=== PATIENT | female | born 1965 | race Caucasian/White ===

== ENCOUNTER 2018-08-04 14:15 | Emergency (ER) | payer MEDICARE ==
[~2018-08-04] VITALS: Ht 170.2 cm; Wt 98.4 kg
--- OUTSIDE RECORDS SUMMARY | 2018-08-04 14:19 | XMS REPORT | Continuity of Care Document ---
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 Role Phone [employer] Unavailable Unavailable Problems Problem Status Onset Date Classification Date Reported Comments Source FOLLOW ON WOUND Active 02/18/2014 [facility] RENAL POST LABS Active 10/07/2013 [facility] FOLLOW UP Active 07/23/2013 [facility] POST CLINIC Active 07/03/2013 [facility] A,B, C, D Active 01/19/2012 [facility] ABC, D, MYCO Active 09/26/2011 [facility] ABCD, Active 12/08/2010 [facility] Bowel obstruction Resolved 11/20/2009 Problem 03/22/2014 [facility] Lethargic Resolved 11/20/2009 Problem 03/22/2014 [facility] Sinus bradycardia Resolved 11/20/2009 Problem 03/22/2014 [facility] LAREGE ABDOMINAL WOUND Active 02/06/1999 [facility] Pain Active Problem 05/02/2013 [facility] Wound care assessment Active Problem 03/22/2014 [facility] Bowel obstruction Resolved Problem 06/21/2012 [facility] Lethargic Resolved Problem 06/21/2012 [facility] Pain Active Problem 06/21/2012 [facility] Sinus bradycardia Resolved Problem 06/21/2012 [facility] Wound care assessment Active Problem 06/21/2012 [facility] Diabetes mellitus type 2 Resolved Problem 03/22/2014 [facility] Pain(Stable) Active Problem 03/22/2014 [facility] Polycystic kidney disease Resolved Problem 03/22/2014 [facility] MRSA1 Active Problem 03/22/2014 1Problem added by Discern Expert. [facility] KIDNEY TRANSPLANT STATUS Active [facility] Medications Medication Details Route Status Patient Instructions Ordering Provider Order Date Source Hydralazine Hydrochloride 25 MG Oral Tablet 25 mg=1 tab, PO, BID, # 360 tab, 0 Refill(s) Active 06/24/2013 [facility] Sulfamethoxazole 400 MG / Trimethoprim 80 MG Oral Tablet [Bactrim] 1 tab, PO, Q-M-[id number], 0 Refill(s) Inactive 06/24/2013 [facility] Gemfibrozil 600 MG Oral Tablet [Lopid] 600 mg=1 tab, PO, BID, # 180 tab, 0 Refill(s) Active 06/24/2013 [facility] Mycophenolic Acid 360 MG Enteric Coated Tablet [Myfortic] 720 mg=2 tab, PO, BID, # 120 tab, 0 Refill(s) Active 06/24/2013 [facility] cyclosporine, modified 100 MG Oral Capsule [Neoral] 100 mg=1 cap, PO, BID, # 60 cap, 0 Refill(s) Active 06/24/2013 [facility] losartan 25 mg oral tablet 25 mg=1 tab, PO, Daily, # 90 tab, 0 Refill(s) Active 06/24/2013 [facility] insulin detemir 100 UNT/ML Injectable Solution [Levemir] See Special Instructions, SUB-Q, BID, Inject 35 units at 9am and inject 25 units at 9pm, vial, 0 Refill(s)Special Instructions: Inject 35 units at 9am and inject 25 units at 9pm Active 06/24/2013 [facility] simvastatin 40 mg oral tablet 40 mg=1 tab, PO, Bedtime, # 90 tab, 0 Refill(s) Active 06/24/2013 [facility] Fluoxetine 40 MG Oral Capsule [Prozac] 40 mg=1 cap, PO, Daily, # 90 cap, 0 Refill(s) Active 06/24/2013 [facility] Glipizide 10 MG Oral Tablet 10 mg=1 tab, PO, BID, # 30 tab, 0 Refill(s) Active 06/24/2013 [facility] Frederick-3 Acid Ethyl Esters (LONGTERM) 1000 MG Oral Capsule [Lovaza] 2,000 mg=2 cap, PO, BID, # 120 cap, 0 Refill(s) Active 06/24/2013 [facility] Allergies, Adverse Reactions, Alerts No Known Medication Allergies Immunizations No Data Provided for This Section Results Order Name Results Value Reference Range Date Interpretation Comments Source Microbiology Culture: Urine 05/21/2012 [facility] CHEMISTRY Immune Cell Func 269.8 05/21/2012 NA <sup>4</sup>Result Comment: Reference Range
< [id number] Low immune cell response
226-524 Moderate immune cell response
> zs=043 High immune cell response

Test Performed at:
[facility]
[id number] [facility]
[place] [address] JOI NARAYAN M.D. [facility] CHEMISTRY Cyclosp Tr 102.0 50.0 - 350.0 05/21/2012 Normal [facility] CHEMISTRY A/G Ratio 1.1 0.7 - 1.6 05/21/2012 Normal [facility] CHEMISTRY Globulin 3.6 2.0 - 4.0 05/21/2012 Normal [facility] CHEMISTRY B/C Ratio 24 6 - 25 05/21/2012 Normal [facility] CHEMISTRY AGAP 16.8 10.0 - 20.0 05/21/2012 Normal [facility] CHEMISTRY eGFR 76 05/21/2012 NA <sup>2</sup>Result Comment: The eGFR is calculated using the CKD-EPI formula. In most young, healthy individuals the eGFR will be >90 mL/min/1.73m2. The eGFR declines with age. An eGFR of 60-89 may be normal in some populations, particularly the elderly, for whom the CKD-EPI formula has not been extensively validated. Use of the eGFR is not recommended in the following populations:& lt;br/>
Individuals with unstable creatinine concentrations, including patients and those with serious co-morbid conditions.

Patients with extremes in muscle mass or diet.

The data above are obtained from the National Kidney Disease Education Program (NKDEP) which additionally recommends that when the eGFR is used in patients with extremes of body mass index for purposes of drug dosing, the eGFR should be multiplied by the estimated BMI. [facility] CHEMISTRY Alk Phos 73 39 - 136 05/21/2012 Normal [facility] CHEMISTRY Total Protein 7.6 6.4 - 8.4 05/21/2012 Normal [facility] CHEMISTRY Bili Total 0.5 0.2 - 1.3 05/21/2012 Normal [facility] CHEMISTRY Calcium Lvl 9.9 8.5 - 10.5 05/21/2012 Normal [facility] CHEMISTRY CO2 25 24 - 32 05/21/2012 Normal [facility] CHEMISTRY Chloride Lvl 98 95 - 109 05/21/2012 Normal [facility] CHEMISTRY Sodium Lvl 135 135 - 145 05/21/2012 Normal [facility] CHEMISTRY Potassium Lvl 4.8 3.5 - 5.1 05/21/2012 Normal <sup>1</sup>Result Comment: Specimen Slightly Hemolyzed. [facility] CHEMISTRY Creatinine Lvl 0.9 0.5 - 1.4 05/21/2012 Normal [facility] CHEMISTRY BUN 22 7 - 22 05/21/2012 Normal [facility] CHEMISTRY Glucose Lvl 237 70 - 99 05/21/2012 HI <sup>3</sup>Interpretive Data: Adult reference range values reflect the clinical guidelines
of the [place] [employer]. [facility] CHEMISTRY AST 21 0 - 37 05/21/2012 Normal [facility] CHEMISTRY Albumin Lvl 4.0 3.5 - 5.0 05/21/2012 Normal [facility] CHEMISTRY ALT 36 0 - 65 05/21/2012 Normal [facility] CHEMISTRY Chol 125 120 - 200 05/21/2012 Normal [facility] CHEMISTRY Uric Acid 3.1 2.5 - 7.0 05/21/2012 Normal [facility] CHEMISTRY Trig 428 0 - 200 05/21/2012 HI [facility] CHEMISTRY Phosphorus 3.1 2.5 - 4.5 05/21/2012 Normal [facility] CHEMISTRY LDH 175 98 - 192 05/21/2012 Normal [facility] CHEMISTRY U Prot/Creat 0.3 05/21/2012 NA [facility] CHEMISTRY U Creatinine 114.5 05/21/2012 NA <sup>5</sup>Interpretive Data: No established reference ranges. [facility] CHEMISTRY U Protein 38.8 05/21/2012 NA <sup>6</sup>Interpretive Data: No established reference ranges. [facility] HEMATOLOGY Hgb 12.1 12.0 - 16.0 05/21/2012 Normal [facility] HEMATOLOGY Hct 35.2 36.0 - 48.0 05/21/2012 LOW [facility] HEMATOLOGY WBC 8.6 3.7 - 10.4 05/21/2012 Normal [facility] HEMATOLOGY RBC 3.80 4.20 - 5.40 05/21/2012 LOW [facility] HEMATOLOGY RDW 14.1 11.5 - 14.5 05/21/2012 Normal [facility] HEMATOLOGY MCV 92.6 81.0 - 99.0 05/21/2012 Normal [facility] HEMATOLOGY MCH 31.7 27.0 - 31.0 05/21/2012 HI [facility] HEMATOLOGY Platelet 284 133 - 450 05/21/2012 Normal [facility] HEMATOLOGY MPV 9.0 7.4 - 10.4 05/21/2012 Normal [facility] HEMATOLOGY MCHC 34.2 32.0 - 36.0 05/21/2012 Normal [facility] HEMATOLOGY Basophils # 0.1 0.0 - 0.2 05/21/2012 Normal [facility] HEMATOLOGY Lymphocytes # 2.7 1.0 - 5.5 05/21/2012 Normal [facility] HEMATOLOGY Monocytes # 0.7 0.0 - 0.8 05/21/2012 Normal [facility] HEMATOLOGY Eosinophils 2.6 0.0 - 4.0 05/21/2012 Normal [facility] HEMATOLOGY Basophils 0.6 0.0 - 1.0 05/21/2012 Normal [facility] HEMATOLOGY Segs-Bands # 4.9 1.5 - 8.1 05/21/2012 Normal [facility] HEMATOLOGY Segs 57.3 45.0 - 75.0 05/21/2012 Normal [facility] HEMATOLOGY Lymphocytes 31.5 20.0 - 40.0 05/21/2012 Normal [facility] HEMATOLOGY Monocytes 8.0 2.0 - 12.0 05/21/2012 Normal [facility] HEMATOLOGY Eosinophils # 0.2 0.0 - 0.5 05/21/2012 Normal [facility] URINALYSIS UA Glucose >=1000mg/dL 05/21/2012 NA [facility] URINALYSIS UA Urobilinogen 0.1 - 1.0 05/21/2012 NA [facility] URINALYSIS UA Spec Grav 1.016 <=1.030 05/21/2012 Normal [facility] URINALYSIS UA pH 5.5 5.0 - 8.0 05/21/2012 Normal [facility] URINALYSIS UA Bili Negative *NA* (05/21/2012 10:30:00) Negative 05/21/2012 NA [facility] URINALYSIS UA Blood Moderate *ABN* (05/21/2012 10:30:00) Negative 05/21/2012 ABN [facility] URINALYSIS UA Ketones Negative mg/dL *NA* (05/21/2012 10:30:00) Negative 05/21/2012 NA [facility] URINALYSIS UA Protein 30 mg/dL *ABN* (05/21/2012 10:30:00) Negative 05/21/2012 ABN [facility] URINALYSIS UA RBC 71 0 - 2 05/21/2012 HI [facility] URINALYSIS UA Sq Epi Few /LPF *NA* (05/21/2012 10:30:00) Few 05/21/2012 NA [facility] URINALYSIS UA Leuk Est Negative (05/21/2012 10:30:00) Negative 05/21/2012 Normal [facility] URINALYSIS UA Nitrite Negative (05/21/2012 10:30:00) Negative 05/21/2012 Normal [facility] URINALYSIS UA Color Yellow *NA* (05/21/2012 10:30:00) Yellow 05/21/2012 NA [facility] URINALYSIS UA Turbidity Clear (05/21/2012 10:30:00) Clear 05/21/2012 Normal [facility] Microbiology Culture: Urine 01/20/2012 [facility] CHEMISTRY B/C Ratio 18 6 - 25 01/19/2012 Normal [facility] CHEMISTRY Globulin 3.5 2.0 - 4.0 01/19/2012 Normal [facility] CHEMISTRY A/G Ratio 1.4 0.7 - 1.6 01/19/2012 Normal [facility] CHEMISTRY AGAP 18.5 10.0 - 20.0 01/19/2012 Normal [facility] CHEMISTRY eGFR 67 01/19/2012 NA <sup>3</sup>Result Comment: The eGFR is calculated using the CKD-EPI formula. In most young, healthy individuals the eGFR will be >90 mL/min/1.73m2. The eGFR declines with age. An eGFR of 60-89 may be normal in some populations, particularly the elderly, for whom the CKD-EPI formula has not been extensively validated. Use of the eGFR is not recommended in the following populations:& lt;br/>
Individuals with unstable creatinine concentrations, including patients and those with serious co-morbid conditions.

Patients with extremes in muscle mass or diet.

The data above are obtained from the National Kidney Disease Education Program (NKDEP) which additionally recommends that when the eGFR is used in patients with extremes of body mass index for purposes of drug dosing, the eGFR should be multiplied by the estimated BMI. [facility] CHEMISTRY BUN 18 7 - 22 01/19/2012 Normal [facility] CHEMISTRY Alk Phos 58 39 - 136 01/19/2012 Normal [facility] CHEMISTRY Glucose Lvl 162 70 - 99 01/19/2012 HI <sup>5</sup>Interpretive Data: Adult reference range values reflect the clinical guidelines
of the [place] [employer]. [facility] CHEMISTRY ALT 47 0 - 65 01/19/2012 Normal [facility] CHEMISTRY Albumin Lvl 4.8 3.5 - 5.0 01/19/2012 Normal [facility] CHEMISTRY Bili Total 0.6 0.2 - 1.3 01/19/2012 Normal [facility] CHEMISTRY Total Protein 8.3 6.4 - 8.4 01/19/2012 Normal [facility] CHEMISTRY Calcium Lvl 10.0 8.5 - 10.5 01/19/2012 Normal [facility] CHEMISTRY Creatinine Lvl 1.0 0.5 - 1.4 01/19/2012 Normal [facility] CHEMISTRY Sodium Lvl 138 135 - 145 01/19/2012 Normal [facility] CHEMISTRY AST 25 0 - 37 01/19/2012 Normal [facility] CHEMISTRY CO2 20 24 - 32 01/19/2012 LOW [facility] CHEMISTRY Potassium Lvl 4.5 3.5 - 5.1 01/19/2012 Normal [facility] CHEMISTRY Chloride Lvl 104 95 - 109 01/19/2012 Normal [facility] CHEMISTRY eGFR 67 01/19/2012 NA <sup>4</sup>Result Comment: The eGFR is calculated using the CKD-EPI formula. In most young, healthy individuals the eGFR will be >90 mL/min/1.73m2. The eGFR declines with age. An eGFR of 60-89 may be normal in some populations, particularly the elderly, for whom the CKD-EPI formula has not been extensively validated. Use of the eGFR is not recommended in the following populations:& lt;br/>
Individuals with unstable creatinine concentrations, including patients and those with serious co-morbid conditions.

Patients with extremes in muscle mass or diet.

The data above are obtained from the National Kidney Disease Education Program (NKDEP) which additionally recommends that when the eGFR is used in patients with extremes of body mass index for purposes of drug dosing, the eGFR should be multiplied by the estimated BMI. [facility] CHEMISTRY AST 25 0 - 37 01/19/2012 Normal [facility] CHEMISTRY Total Protein 8.3 6.4 - 8.4 01/19/2012 Normal [facility] CHEMISTRY Calcium Lvl 10.0 8.5 - 10.5 01/19/2012 Normal [facility] CHEMISTRY Bili Total 0.6 0.2 - 1.3 01/19/2012 Normal [facility] CHEMISTRY CO2 20 24 - 32 01/19/2012 LOW [facility] CHEMISTRY Chloride Lvl 104 95 - 109 01/19/2012 Normal [facility] CHEMISTRY Alk Phos 58 39 - 136 01/19/2012 Normal [facility] CHEMISTRY Albumin Lvl 4.8 3.5 - 5.0 01/19/2012 Normal [facility] CHEMISTRY ALT 47 0 - 65 01/19/2012 Normal [facility] CHEMISTRY Potassium Lvl 4.5 3.5 - 5.1 01/19/2012 Normal [facility] CHEMISTRY Creatinine Lvl 1.0 0.5 - 1.4 01/19/2012 Normal [facility] CHEMISTRY Sodium Lvl 138 135 - 145 01/19/2012 Normal [facility] CHEMISTRY Glucose Lvl 162 70 - 99 01/19/2012 HI <sup>6</sup>Interpretive Data: Adult reference range values reflect the clinical guidelines
of the [place] [employer]. [facility] CHEMISTRY BUN 18 7 - 22 01/19/2012 Normal [facility] CHEMISTRY B/C Ratio 18 6 - 25 01/19/2012 Normal [facility] CHEMISTRY Globulin 3.5 2.0 - 4.0 01/19/2012 Normal [facility] CHEMISTRY A/G Ratio 1.4 0.7 - 1.6 01/19/2012 Normal [facility] CHEMISTRY AGAP 18.5 10.0 - 20.0 01/19/2012 Normal [facility] CHEMISTRY U Prot/Creat 0.2 01/19/2012 NA [facility] CHEMISTRY U Protein 28.7 01/19/2012 NA <sup>10</sup>Interpretive Data: No established reference ranges. [facility] CHEMISTRY U Creatinine 142.1 01/19/2012 NA <sup>9</sup>Interpretive Data: No established reference ranges. [facility] CHEMISTRY Uric Acid 3.9 2.5 - 7.0 01/19/2012 Normal [facility] CHEMISTRY Trig 305 0 - 200 01/19/2012 HI [facility] CHEMISTRY Phosphorus 2.7 2.5 - 4.5 01/19/2012 Normal [facility] CHEMISTRY Cyclosp Tr 85.6 50.0 - 350.0 01/19/2012 Normal [facility] CHEMISTRY Hgb A1C 6.7 01/19/2012 NA <sup>7</sup>Interpretive Data: HbA1C% eAG(mg/dL) Interpretation
6.0 126 Very good control
6.5 140 Very good control
7.0 154 Good Control
7.5 169 Good Control
8.0 183 Marginal Control, take action to lower
8.5 197 Marginal Control, take action to lower
9.0 212 Poor Control, take action to lower
9.5 226 Poor Control, take action to lower
10.0 240 Poor Control, take action to lower [facility] CHEMISTRY Immune Cell Func 188 01/19/2012 LOW <sup>8</sup>Result Comment: Reference Range
< eq=[id number] Low immune cell response
[phone] Moderate immune cell response
> nn=414 High immune cell response

Test Performed at:
[facility]
[id number] [facility]
[place] [address] JOI NARAYAN M.D. [facility] CHEMISTRY Chol 131 120 - 200 01/19/2012 Normal [facility] CHEMISTRY LDL 41 0 - 129 01/19/2012 Normal [facility] CHEMISTRY HDL 29 >=35 01/19/2012 LOW [facility] CHEMISTRY Chol 131 120 - 200 01/19/2012 Normal [facility] CHEMISTRY Trig 305 0 - 200 01/19/2012 [facility] CHEMISTRY CHD Risk 4.52 3.90 - 5.80 01/19/2012 Normal [facility] CHEMISTRY LDL Direct 67 0 - 129 01/19/2012 Normal [facility] CHEMISTRY Magnesium Lvl 1.8 1.8 - 2.4 01/19/2012 Normal [facility] CHEMISTRY LDH 173 98 - 192 01/19/2012 Normal [facility] HEMATOLOGY Monocytes 7.9 2.0 - 12.0 01/19/2012 [facility] HEMATOLOGY Lymphocytes 36.3 20.0 - 40.0 01/19/2012 [facility] HEMATOLOGY Segs 52.2 45.0 - 75.0 01/19/2012 [facility] HEMATOLOGY Eosinophils 2.9 0.0 - 4.0 01/19/2012 [facility] HEMATOLOGY Segs-Bands # 4.1 1.5 - 8.1 01/19/2012 Normal [facility] HEMATOLOGY Basophils 0.7 0.0 - 1.0 01/19/2012 Normal [facility] HEMATOLOGY Eosinophils # 0.2 0.0 - 0.5 01/19/2012 [facility] HEMATOLOGY Monocytes # 0.6 0.0 - 0.8 01/19/2012 [facility] HEMATOLOGY Lymphocytes # 2.9 1.0 - 5.5 01/19/2012 [facility] HEMATOLOGY Basophils # 0.1 0.0 - 0.2 01/19/2012 Normal [facility] HEMATOLOGY WBC 7.9 3.7 - 10.4 01/19/2012 Normal [facility] HEMATOLOGY RBC 3.87 4.20 - 5.40 01/19/2012 LOW [facility] HEMATOLOGY Hgb 12.7 12.0 - 16.0 01/19/2012 Normal [facility] HEMATOLOGY Hct 37.3 36.0 - 48.0 01/19/2012 Normal [facility] HEMATOLOGY RDW 14.7 11.5 - 14.5 01/19/2012 [facility] HEMATOLOGY MCH 32.8 27.0 - 31.0 01/19/2012 [facility] HEMATOLOGY MCHC 34.2 32.0 - 36.0 01/19/2012 [facility] HEMATOLOGY MCV 96.2 81.0 - 99.0 01/19/2012 Normal [facility] HEMATOLOGY Platelet 293 133 - 450 01/19/2012 Normal [facility] HEMATOLOGY MPV 9.3 7.4 - 10.4 01/19/2012 Normal [facility] IMMUNOLOGY EBV PCR Ql NOT DETECTED 01/19/2012 NA <sup>11</sup>Result Comment: REFERENCE RANGE: NOT DETECTED

This test was developed and its performance
characteristics have been determined by [facility]. It has not been cleared or approved
by the U.S. Food and Drug Administration. The FDA
has determined that such clearance or approval is
not necessary. Performance characteristics refer
to the analytical performance of the test.
Test Performed at:
[facility]
[address]
[place] [address] Tricia Lynn MD [facility] IMMUNOLOGY Source WHOLE BLOOD 01/19/2012 NA [facility] INFECTIOUS DISEASES Source BK Virus PCR Qnt Plasma 01/19/2012 NA [facility] INFECTIOUS DISEASES BK Virus PCR Qnt (log) <2.0 01/19/2012 NA <sup>2</sup>Interpretive Data: Analytic Quantification Range: 100-400,000,000 copies/mL (2.0-8.6 log)

BK DNA detected below 100 copies/mL will be resulted as "BK DNA
detected, less than 100 copies/mL."

No target BK DNA detected will be reported as "BK DNA not detected."
A negative result does not rule out the possibility of the presence
of the BK virus. The specimen may contain BK below the detectable
limits of the assay.

The BK Virus is a DNA virus belonging to the polyomaviruses. The BK Virus assay targets a 274 base pair region of the BK virus genome.

This assay utilizes analyte specific (ASR) reagents for Real-Time nucleic acid amplification (PCR). Results should not be used as the sole basis for clinical diagnosis, treatment or patient management. Performance characteristics have been verified by the [facility] within [facility]. The [facility] is authorized under the Clinical Laboratory Improvement Amendments of 1988 (CLIA-88) to perform high complexity testing. [facility] INFECTIOUS DISEASES BK Virus PCR Qnt Negative (01/19/2012 09:30:00) Negative 01/19/2012 Normal [facility] INFECTIOUS DISEASES CMV PCR Qnt Negative (01/19/2012 09:30:00) Negative 01/19/2012 Normal [facility] INFECTIOUS DISEASES Source CMV PCR Qnt Blood *NA* (01/19/2012 09:30:00) 01/19/2012 NA [facility] INFECTIOUS DISEASES CMV PCR Qnt (log) <2.4 01/19/2012 NA <sup>1</sup>Interpretive Data: Analytic Quantification Range: 250-2,500,000 copies/mL (2.4-6.4 log)

CMV DNA detected below 250 copies/mL will be resulted as "CMV DNA
detected, less than 250 copies/mL."

No target CMV DNA detected will be reported as "CMV DNA not
detected." A negative result does not rule out the possibility
of the presence of Cytomegalovirus. The specimen may contain CMV
below the detectable limits of the assay.

The human Cytomegalovirus (CMV) is a DN A virus belonging to the herpes virus family. The CMV Virus assay targets a 105 base pair region of the CMV virus genome.

This assay utilizes analyte specific (ASR) reagents for Real-Time nucleic acid amplification (PCR). Results should not be used as the sole basis for clinical diagnosis, treatment or patient management. Performance characteristics have been verified by the [facility] ular Diagnostic Laboratory within [facility]. The Molecular Diagnostic Laboratory is authorized under the Clinical Laboratory Improvement Amendments of 1988 (CLIA-88) to perform high complexity testing. [facility] URINALYSIS UA Urobilinogen 0.1 - 1.0 01/19/2012 NA [facility] URINALYSIS UA Mucus Few /LPF *NA* (01/19/2012 09:30:00) None Seen 01/19/2012 NA [facility] URINALYSIS UA Turbidity Slight *ABN* (01/19/2012 09:30:00) Clear 01/19/2012 ABN [facility] URINALYSIS UA Color Yellow *NA* (01/19/2012 09:30:00) Yellow 01/19/2012 NA [facility] URINALYSIS UA pH 5.5 5.0 - 8.0 01/19/2012 Normal [facility] URINALYSIS UA Spec Grav 1.021 <=1.030 01/19/2012 Normal [facility] URINALYSIS UA Protein 20 mg/dL *ABN* (01/19/2012 09:30:00) Negative 01/19/2012 ABN [facility] URINALYSIS UA Bacteria Moderate /HPF *ABN* (01/19/2012 09:30:00) None Seen 01/19/2012 ABN [facility] URINALYSIS UA WBC 3 0 - 5 01/19/2012 Normal [facility] URINALYSIS UA RBC 2 0 - 2 01/19/2012 Normal [facility] URINALYSIS UA Blood Negative (01/19/2012 09:30:00) Negative 01/19/2012 Normal [facility] URINALYSIS UA Glucose Negative mg/dL *NA* (01/19/2012 09:30:00) Negative 01/19/2012 NA [facility] URINALYSIS UA Ketones Negative mg/dL *NA* (01/19/2012 09:30:00) Negative 01/19/2012 NA [facility] URINALYSIS UA Bili Negative *NA* (01/19/2012 09:30:00) Negative 01/19/2012 NA [facility] URINALYSIS UA Nitrite Negative (01/19/2012 09:30:00) Negative 01/19/2012 Normal [facility] URINALYSIS UA Leuk Est Negative (01/19/2012 09:30:00) Negative 01/19/2012 Normal [facility] URINALYSIS UA Sq Epi Many /LPF *ABN* (01/19/2012 09:30:00) Few 01/19/2012 ABN [facility] CHEMISTRY U Prot/Creat 0.4 09/27/2011 NA [facility] CHEMISTRY U Protein 34.8 09/27/2011 NA <sup>7</sup>Interpretive Data: No established reference ranges. [facility] CHEMISTRY U Creatinine 93.6 09/27/2011 NA <sup>6</sup>Interpretive Data: No established reference ranges. [facility] CHEMISTRY Chol 195 120 - 200 09/27/2011 Normal [facility] CHEMISTRY Trig 972 0 - 200 09/27/2011 [facility] CHEMISTRY Phosphorus 3.4 2.5 - 4.5 09/27/2011 Normal [facility] CHEMISTRY Uric Acid 4.2 2.5 - 7.0 09/27/2011 Normal [facility] CHEMISTRY eGFR 51 09/27/2011 NA <sup>2</sup>Result Comment: Expected eGFR for >20 yr. age group: >=60 ml/min/1.73 sq m

The eGFR calculation is not valid in or for

persons < 18 years of age.

From National Kidney Disease Education Program (NKDEP) [facility] CHEMISTRY B/C Ratio 19 6 - 25 09/27/2011 Normal [facility] CHEMISTRY Globulin 4.1 2.0 - 4.0 09/27/2011 [facility] CHEMISTRY A/G Ratio 1.0 0.7 - 1.6 09/27/2011 Normal [facility] CHEMISTRY AST 25 0 - 37 09/27/2011 Normal [facility] CHEMISTRY Bili Total 0.6 0.2 - 1.3 09/27/2011 Normal [facility] CHEMISTRY Sodium Lvl 132 135 - 145 09/27/2011 LOW [facility] CHEMISTRY Potassium Lvl 4.5 3.5 - 5.1 09/27/2011 Normal [facility] CHEMISTRY Total Protein 8.4 6.4 - 8.4 09/27/2011 Normal [facility] CHEMISTRY AGAP 20.5 10.0 - 20.0 09/27/2011 [facility] CHEMISTRY Calcium Lvl 10.6 8.5 - 10.5 09/27/2011 [facility] CHEMISTRY BUN 23 7 - 22 09/27/2011 [facility] CHEMISTRY Chloride Lvl 95 95 - 109 09/27/2011 Normal [facility] CHEMISTRY CO2 21 24 - 32 09/27/2011 LOW [facility] CHEMISTRY ALT 52 0 - 65 09/27/2011 Normal [facility] CHEMISTRY Creatinine Lvl 1.2 0.5 - 1.4 09/27/2011 Normal [facility] CHEMISTRY Albumin Lvl 4.3 3.5 - 5.0 09/27/2011 Normal [facility] CHEMISTRY Alk Phos 86 39 - 136 09/27/2011 Normal [facility] CHEMISTRY Glucose Lvl 409 70 - 99 09/27/2011 CRIT <sup>3</sup>Result Comment: Called to Diya Rodriguez at 09/27/2011 12:42:53 CDT called by dbf read back ok
<sup>4</sup>Interpretive Data: Adult reference range values reflect the clinical guidelines
of the [place] [employer]. [facility] CHEMISTRY Cyclosp Tr 128.4 50.0 - 350.0 09/27/2011 Normal [facility] CHEMISTRY Immune Cell Func 356 09/27/2011 NA <sup>5</sup>Result Comment: Reference Range
< my=493 Low immune cell response
226-524 Moderate immune cell response
> od=655 High immune cell response

Test Performed at:
[facility]
[address] [place] [address]
[place] [address] JOI NARAYAN M.D. [facility] CHEMISTRY LDH 170 98 - 192 09/27/2011 Normal [facility] HEMATOLOGY Lymphocytes 25.2 20.0 - 40.0 09/27/2011 Normal [facility] HEMATOLOGY Monocytes 6.2 2.0 - 12.0 09/27/2011 Normal [facility] HEMATOLOGY Eosinophils 1.8 0.0 - 4.0 09/27/2011 Normal [facility] HEMATOLOGY Basophils 0.4 0.0 - 1.0 09/27/2011 Normal [facility] HEMATOLOGY Monocytes # 0.5 0.0 - 0.8 09/27/2011 Normal [facility] HEMATOLOGY Segs-Bands # 5.6 1.5 - 8.1 09/27/2011 Normal [facility] HEMATOLOGY Eosinophils # 0.2 0.0 - 0.5 09/27/2011 Normal [facility] HEMATOLOGY Lymphocytes # 2.1 1.0 - 5.5 09/27/2011 Normal [facility] HEMATOLOGY Basophils # 0.0 0.0 - 0.2 09/27/2011 Normal [facility] HEMATOLOGY Segs 66.4 45.0 - 75.0 09/27/2011 Normal [facility] HEMATOLOGY Platelet 284 133 - 450 09/27/2011 Normal [facility] HEMATOLOGY MCHC 34.0 32.0 - 36.0 09/27/2011 Normal [facility] HEMATOLOGY RDW 13.3 11.5 - 14.5 09/27/2011 Normal [facility] HEMATOLOGY MPV 9.6 7.4 - 10.4 09/27/2011 Normal [facility] HEMATOLOGY Hct 38.8 36.0 - 48.0 09/27/2011 Normal [facility] HEMATOLOGY MCV 95.8 81.0 - 99.0 09/27/2011 Normal [facility] HEMATOLOGY Hgb 13.2 12.0 - 16.0 09/27/2011 Normal [facility] HEMATOLOGY MCH 32.6 27.0 - 31.0 09/27/2011 HI [facility] HEMATOLOGY WBC 8.5 3.7 - 10.4 09/27/2011 Normal [facility] HEMATOLOGY RBC 4.05 4.20 - 5.40 09/27/2011 LOW [facility] IMMUNOLOGY EBV PCR Qnt <200 09/27/2011 NA <sup>8</sup>Result Comment: REFERENCE RANGE: <200 copies/mL

This test was developed and its performance
characteristics have been determined by [facility]. It has not been cleared or approved
by the U.S. Food and Drug Administration. The FDA
has determined that such clearance or approval is
not necessary. Performance characteristics refer
to the analytical performance of the test.
Test Performed at:
[facility]
[address]
[place] [phone] Tricia Lynn MD [facility] IMMUNOLOGY Source BLOOD 09/27/2011 NA [facility] REFERENCE LAB RESULTS Test Name MYCOPHENOLIC ACID 09/27/2011 Unknown [facility] REFERENCE LAB RESULTS Misc [facility] See Report 1 (09/27/2011 10:55:00) 09/27/2011 Normal <sup>1</sup>Result Comment: Mycophenolic Acid: 4.7 H mcg/mL
Reference Range (TROUGH): 1.0-3.5 mcg/mL

MPA Glucuronide 121.7 H mcg/mL
Reference Range (TROUGH): 35.0-100.0 [facility] URINALYSIS UA Urobilinogen 0.1 - 1.0 09/27/2011 NA [facility] URINALYSIS Micro? Performed *NA* (09/27/2011 10:55:00) 09/27/2011 NA [facility] URINALYSIS UA Turbidity Clear (09/27/2011 10:55:00) Clear 09/27/2011 Normal [facility] URINALYSIS UA Color Yellow *NA* (09/27/2011 10:55:00) Yellow 09/27/2011 NA [facility] URINALYSIS UA Bacteria Occasional /HPF *NA* (09/27/2011 10:55:00) None Seen 09/27/2011 NA [facility] URINALYSIS UA RBC 1 0 - 2 09/27/2011 Normal [facility] URINALYSIS UA WBC <1 0 - 5 09/27/2011 Normal [facility] URINALYSIS UA Sq Epi Moderate /LPF *ABN* (09/27/2011 10:55:00) Few 09/27/2011 ABN [facility] URINALYSIS UA Leuk Est Negative (09/27/2011 10:55:00) Negative 09/27/2011 Normal [facility] URINALYSIS UA Nitrite Negative (09/27/2011 10:55:00) Negative 09/27/2011 Normal [facility] URINALYSIS UA Blood Negative (09/27/2011 10:55:00) Negative 09/27/2011 Normal [facility] URINALYSIS UA Bili Negative *NA* (09/27/2011 10:55:00) Negative 09/27/2011 [facility] URINALYSIS UA Ketones Negative mg/dL *NA* (09/27/2011 10:55:00) Negative 09/27/2011 [facility] URINALYSIS UA Glucose >=1000 mg/dL *ABN* (09/27/2011 10:55:00) Negative 09/27/2011 ABN [facility] URINALYSIS UA Protein 20 mg/dL *ABN* (09/27/2011 10:55:00) Negative 09/27/2011 ABN [facility] URINALYSIS UA Spec Grav 1.022 <=1.030 09/27/2011 Normal [facility] URINALYSIS UA pH 6.0 5.0 - 8.0 09/27/2011 Normal [facility] Microbiology Culture: Urine 09/27/2011 [facility] CHEMISTRY U Prot/Creat 0.6 03/29/2011 NA [facility] CHEMISTRY LDH 213 98 - 192 03/29/2011 HI [facility] CHEMISTRY U Protein 94.5 03/29/2011 NA <sup>12</sup>Interpretive Data: No established reference ranges. [facility] CHEMISTRY Cyclosp Tr UT 104.0 03/29/2011 NA <sup>8</sup>Interpretive Data: Kidney Transplantation: Therapeutic ranges for Cyclosporine trough alone: 100-240 (0-12 mos) 35-170 (>=12 mos) Therapeutic ranges for Cyclosporine trough + Sirolimus: 30-130 (0-12 mos) 20-90 (>=12 mos) Cyclosporine (Neoral) at 2nd Hr after dosing (C2): 460-1200 (&am p;lt;=1 month) 340-710 (1-6 mos) 170-600 (>=12 mos) Kidney-Pancreas and Pancreas Transplantation: Therapeutic ranges for Cyclosporine trough alone: 200-240 (1-3 mos) 70-200 (>3 mos) Sub-therapeutic range for Cyclosporine trough alone: <70 Toxic level for Cyclosporine trough alone: >240 Therapeutic ranges for Cyclosporine trough + Sirolimus: 60-90 (1-3 mos) 15- 60 (>3 mos) Liver Transplantation: Sub-therapeutic range for Cyclosporine (Neoral) trough: <60 Toxic range for Cyclosporine (Neoral) trough: >250 *Troughs are defined by concentration values prior to dosing. *Methodology and Reference Ranges changed 06/07/04 Performed at: HPLC Drug Monitoring Laboratory [facility] [place] [address], [address] [place] [address] [facility] CHEMISTRY Uric Acid 3.8 2.5 - 7.0 03/29/2011 Normal [facility] CHEMISTRY Hgb A1C 9.0 03/29/2011 NA <sup>7</sup>Interpretive Data: HbA1C% eAG(mg/dL) Interpretation 6.0 126 Very good control 6.5 140 Very good control 7.0 154 Good Control 7.5 169 Good Control 8.0 183 Marginal Control, take action to lower 8.5 197 Marginal Control, take action to lower 9.0 212 Poor Control, take action to lower 9.5 226 Poor Control, take action to lower 10.0 240 Poor Control, take action to lower [facility] CHEMISTRY Trig 632 0 - 200 03/29/2011 HI [facility] CHEMISTRY Phosphorus 2.8 2.5 - 4.5 03/29/2011 Normal [facility] CHEMISTRY Chol 176 120 - 200 03/29/2011 Normal [facility] CHEMISTRY U Creatinine 157.1 03/29/2011 NA <sup>10</sup>Interpretive Data: No established reference ranges. [facility] CHEMISTRY Total Protein 8.1 6.4 - 8.4 03/29/2011 Normal [facility] CHEMISTRY AST 41 0 - 37 03/29/2011 [facility] CHEMISTRY Alk Phos 84 39 - 136 03/29/2011 Normal [facility] CHEMISTRY Potassium Lvl 4.5 3.5 - 5.1 03/29/2011 Normal [facility] CHEMISTRY Chloride Lvl 98 95 - 109 03/29/2011 Normal [facility] CHEMISTRY Glucose Lvl 326 03/29/2011 NA <sup>5</sup>Interpretive Data: Reference Ranges : 0 - 7 days : 41 - 90 mg/dL 7 days - 150 yrs : 70 - 99 mg/dL (fasting), based on the clinical recommendations of the [place] [employer]. [facility] CHEMISTRY Calcium Lvl 9.9 8.5 - 10.5 03/29/2011 Normal [facility] CHEMISTRY CO2 25 24 - 32 03/29/2011 Normal [facility] CHEMISTRY Bili Total 0.7 0.2 - 1.3 03/29/2011 Normal [facility] CHEMISTRY Creatinine Lvl 1.1 0.5 - 1.4 03/29/2011 Normal [facility] CHEMISTRY BUN 15 7 - 22 03/29/2011 Normal [facility] CHEMISTRY Sodium Lvl 135 135 - 145 03/29/2011 Normal [facility] CHEMISTRY Albumin Lvl 4.3 3.5 - 5.0 03/29/2011 Normal [facility] CHEMISTRY ALT 59 0 - 65 03/29/2011 Normal [facility] CHEMISTRY B/C Ratio 14 6 - 25 03/29/2011 Normal [facility] CHEMISTRY AGAP 16.5 10.0 - 20.0 03/29/2011 Normal [facility] CHEMISTRY A/G Ratio 1.1 0.7 - 1.6 03/29/2011 Normal [facility] CHEMISTRY Globulin 3.8 2.0 - 4.0 03/29/2011 Normal [facility] HEMATOLOGY Eosinophils # 0.2 0.0 - 0.5 03/29/2011 Normal [facility] HEMATOLOGY Monocytes # 0.6 0.0 - 0.8 03/29/2011 Normal [facility] HEMATOLOGY Basophils # 0.0 0.0 - 0.2 03/29/2011 Normal [facility] HEMATOLOGY Lymphocytes # 2.3 1.0 - 5.5 03/29/2011 Normal [facility] HEMATOLOGY Segs-Bands # 5.2 1.5 - 8.1 03/29/2011 Normal [facility] HEMATOLOGY Eosinophils 2.3 0.0 - 4.0 03/29/2011 Normal [facility] HEMATOLOGY Basophils 0.3 0.0 - 1.0 03/29/2011 Normal [facility] HEMATOLOGY Lymphocytes 27.2 20.0 - 40.0 03/29/2011 Normal [facility] HEMATOLOGY Monocytes 7.8 2.0 - 12.0 03/29/2011 Normal [facility] HEMATOLOGY Segs 62.4 45.0 - 75.0 03/29/2011 Normal [facility] HEMATOLOGY MCH 33.0 27.0 - 31.0 03/29/2011 HI [facility] HEMATOLOGY MCHC 35.0 32.0 - 36.0 03/29/2011 Normal [facility] HEMATOLOGY MPV 9.7 7.4 - 10.4 03/29/2011 [facility] HEMATOLOGY MCV 94.3 81.0 - 99.0 03/29/2011 Normal [facility] HEMATOLOGY Platelet 263 133 - 450 03/29/2011 Normal [facility] HEMATOLOGY RDW 13.3 11.5 - 14.5 03/29/2011 [facility] HEMATOLOGY Hgb 13.1 12.0 - 16.0 03/29/2011 Normal [facility] HEMATOLOGY Hct 37.3 36.0 - 48.0 03/29/2011 Normal [facility] HEMATOLOGY WBC 8.3 3.7 - 10.4 03/29/2011 Normal [facility] HEMATOLOGY RBC 3.95 4.20 - 5.40 03/29/2011 LOW [facility] REFERENCE LAB RESULTS [facility] See Report 3 (03/29/2011 09:45:00) 03/29/2011 Normal <sup>3</sup>Result Comment: Immune Cell Function: 280 ng/mL ATP Reference Ranges for Immune Cell Function: < ad=[id number] Low Immune Cell Response 226-524 Moderate Immune Cell Response > os=348 High Immune Cell Response [facility] REFERENCE LAB RESULTS Test Name NAHED 03/29/2011 Unknown [facility] URINALYSIS UA Urobilinogen 0.1 - 1.0 03/29/2011 NA [facility] URINALYSIS UA Renal Epi 3 <=0 03/29/2011 HI [facility] URINALYSIS UA Mucus Few /LPF *NA* (03/29/2011 09:45:00) None Seen 03/29/2011 NA [facility] URINALYSIS UA Leuk Est Negative (03/29/2011 09:45:00) Negative 03/29/2011 Normal [facility] URINALYSIS UA Sq Epi Many /LPF *ABN* (03/29/2011 09:45:00) Few 03/29/2011 ABN [facility] URINALYSIS UA Blood Negative (03/29/2011 09:45:00) Negative 03/29/2011 Normal [facility] URINALYSIS UA Nitrite Negative (03/29/2011 09:45:00) Negative 03/29/2011 Normal [facility] URINALYSIS UA Bili Negative *NA* (03/29/2011 09:45:00) Negative 03/29/2011 NA [facility] URINALYSIS UA RBC 2 0 - 2 03/29/2011 Normal [facility] URINALYSIS UA WBC 3 0 - 5 03/29/2011 Normal [facility] URINALYSIS UA Bacteria Few /HPF *NA* (03/29/2011 09:45:00) None Seen 03/29/2011 [facility] URINALYSIS UA Amorph Denise Occasional /HPF *NA* (03/29/2011 09:45:00) None Seen 03/29/2011 [facility] URINALYSIS UA Turbidity Slight *ABN* (03/29/2011 09:45:00) Clear 03/29/2011 ABN [facility] URINALYSIS UA Color Yellow *NA* (03/29/2011 09:45:00) Yellow 03/29/2011 NA [facility] URINALYSIS UA Ketones Negative mg/dL *NA* (03/29/2011 09:45:00) Negative 03/29/2011 NA [facility] URINALYSIS UA Glucose >=1000 mg/dL *ABN* (03/29/2011 09:45:00) Negative 03/29/2011 ABN [facility] URINALYSIS UA pH 6.0 5.0 - 8.0 03/29/2011 Normal [facility] URINALYSIS UA Spec Grav 1.022 <=1.030 03/29/2011 Normal [facility] URINALYSIS UA Protein 70 mg/dL *ABN* (03/29/2011 09:45:00) Negative 03/29/2011 ABN [facility] CHEMISTRY U Prot/Creat 0.5 03/17/2011 NA [facility] CHEMISTRY Uric Acid 3.9 2.5 - 7.0 03/17/2011 Normal [facility] CHEMISTRY U Creatinine 182.3 03/17/2011 NA <sup>11</sup>Interpretive Data: No established reference ranges. [facility] CHEMISTRY Cyclosp Tr [place] 114.0 03/17/2011 NA <sup>9</sup>Interpretive Data: Kidney Transplantation: Therapeutic ranges for Cyclosporine trough alone: 100-240 (0-12 mos) 35-170 (>=12 mos) Therapeutic ranges for Cyclosporine trough + Sirolimus: 30-130 (0-12 mos) 20-90 (>=12 mos) Cyclosporine (Neoral) at 2nd Hr after dosing (C2): 460-1200 (&am p;lt;=1 month) 340-710 (1-6 mos) 170-600 (>=12 mos) Kidney-Pancreas and Pancreas Transplantation: Therapeutic ranges for Cyclosporine trough alone: 200-240 (1-3 mos) 70-200 (>3 mos) Sub-therapeutic range for Cyclosporine trough alone: <70 Toxic level for Cyclosporine trough alone: >240 Therapeutic ranges for Cyclosporine trough + Sirolimus: 60-90 (1-3 mos) 15- 60 (>3 mos) Liver Transplantation: Sub-therapeutic range for Cyclosporine (Neoral) trough: <60 Toxic range for Cyclosporine (Neoral) trough: >250 *Troughs are defined by concentration values prior to dosing. *Methodology and Reference Ranges changed 06/07/04 Performed at: HPLC Drug Monitoring Laboratory [facility] [place] [address], [address] [place] [address] [facility] CHEMISTRY U Protein 99.7 03/17/2011 NA <sup>13</sup>Interpretive Data: No established reference ranges. [facility] CHEMISTRY LDH 171 98 - 192 03/17/2011 Normal [facility] CHEMISTRY Phosphorus 3.1 2.5 - 4.5 03/17/2011 Normal [facility] CHEMISTRY Trig 615 0 - 200 03/17/2011 HI [facility] CHEMISTRY Chol 172 120 - 200 03/17/2011 Normal [facility] CHEMISTRY AGAP 16.6 10.0 - 20.0 03/17/2011 Normal [facility] CHEMISTRY B/C Ratio 14 6 - 25 03/17/2011 Normal [facility] CHEMISTRY A/G Ratio 1.1 0.7 - 1.6 03/17/2011 Normal [facility] CHEMISTRY Globulin 3.8 2.0 - 4.0 03/17/2011 Normal [facility] CHEMISTRY AST 35 0 - 37 03/17/2011 Normal [facility] CHEMISTRY Bili Total 0.5 0.2 - 1.3 03/17/2011 Normal [facility] CHEMISTRY Total Protein 8.1 6.4 - 8.4 03/17/2011 Normal [facility] CHEMISTRY Glucose Lvl 294 03/17/2011 NA <sup>6</sup>Interpretive Data: Reference Ranges : 0 - 7 days : 41 - 90 mg/dL 7 days - 150 yrs : 70 - 99 mg/dL (fasting), based on the clinical recommendations of the [place] [employer]. [facility] CHEMISTRY BUN 17 7 - 22 03/17/2011 Normal [facility] CHEMISTRY Creatinine Lvl 1.2 0.5 - 1.4 03/17/2011 Normal [facility] CHEMISTRY Sodium Lvl 137 135 - 145 03/17/2011 Normal [facility] CHEMISTRY Alk Phos 74 39 - 136 03/17/2011 Normal [facility] CHEMISTRY Chloride Lvl 102 95 - 109 03/17/2011 Normal [facility] CHEMISTRY Calcium Lvl 10.2 8.5 - 10.5 03/17/2011 [facility] CHEMISTRY Potassium Lvl 4.6 3.5 - 5.1 03/17/2011 [facility] CHEMISTRY CO2 23 24 - 32 03/17/2011 [facility] CHEMISTRY ALT 58 0 - 65 03/17/2011 [facility] CHEMISTRY Albumin Lvl 4.3 3.5 - 5.0 03/17/2011 [facility] HEMATOLOGY Monocytes 8.6 2.0 - 12.0 03/17/2011 [facility] HEMATOLOGY Lymphocytes 28.8 20.0 - 40.0 03/17/2011 [facility] HEMATOLOGY Segs 60.0 45.0 - 75.0 03/17/2011 [facility] HEMATOLOGY Basophils 0.6 0.0 - 1.0 03/17/2011 [facility] HEMATOLOGY Segs-Bands # 4.4 1.5 - 8.1 03/17/2011 [facility] HEMATOLOGY Eosinophils 2.0 0.0 - 4.0 03/17/2011 [facility] HEMATOLOGY Eosinophils # 0.1 0.0 - 0.5 03/17/2011 [facility] HEMATOLOGY Monocytes # 0.6 0.0 - 0.8 03/17/2011 [facility] HEMATOLOGY Lymphocytes # 2.1 1.0 - 5.5 03/17/2011 [facility] HEMATOLOGY Basophils # 0.0 0.0 - 0.2 03/17/2011 [facility] HEMATOLOGY MPV 9.6 7.4 - 10.4 03/17/2011 [facility] HEMATOLOGY RBC 3.70 4.20 - 5.40 03/17/2011 [facility] HEMATOLOGY Hgb 12.4 12.0 - 16.0 03/17/2011 [facility] HEMATOLOGY Hct 35.3 36.0 - 48.0 03/17/2011 [facility] HEMATOLOGY RDW 13.6 11.5 - 14.5 03/17/2011 [facility] HEMATOLOGY MCHC 35.1 32.0 - 36.0 03/17/2011 [facility] HEMATOLOGY MCH 33.5 27.0 - 31.0 03/17/2011 [facility] HEMATOLOGY Platelet 234 133 - 450 03/17/2011 [facility] HEMATOLOGY MCV 95.3 81.0 - 99.0 03/17/2011 Normal [facility] HEMATOLOGY WBC 7.4 3.7 - 10.4 03/17/2011 Normal [facility] MOLECULAR CMV PCR Qnt Negative (03/17/2011 09:25:00) Negative 03/17/2011 Normal [facility] MOLECULAR Source CMV PCR Qnt Blood (03/17/2011 09:25:00) 03/17/2011 Normal [facility] MOLECULAR CMV PCR Qnt (log) <2.4 03/17/2011 NA <sup>1</sup>Interpretive Data: Analytic Quantification Range: 250-2,500,000 copies/mL (2.4-6.4 log) CMV DNA detected below 250 copies/mL will be resulted as "CMV DNA detected, less than 250 copies/mL." No target CMV DNA detected will be reported as "CMV DNA not detected." A negative result does not rule out the possibility of the presence of Cytomegalovirus. The specimen may contain CMV below the detectable limits of the assay. The human Cytomegalovirus (CMV) is a DNA virus belonging to the herpes virus family. The CMV assay targets a 105 base pair region of the CMV genome. This assay utilizes research use only (RUO) reagents for Real-Time nucleic acid amplification (PCR). Results should not be used as the sole basis for clinical diagnosis, treatment or patient management. Performance characteristics have been verified by the Molecular Diagnostic Laboratory within [facility]. The Molecular Diagnostic Laboratory is authorized under the Clinical Laboratory Improvement Amendments of 1988 (CLIA- 88) to perform high complexity testing. [facility] MOLECULAR BK Virus PCR Qnt (log) <2.0 03/17/2011 NA <sup>2</sup>Interpretive Data: Analytic Quantification Range: 100- 400,000,000 copies/mL (2.0-8.6 log) BK DNA detected below 100 copies/mL will be resulted as "BK DNA detected, less than 100 copies/mL." No target BK DNA detected will be reported as "BK DNA not detected." A negative result does not rule out the possibility of the presence of the BK virus. The specimen may contain BK below the detectable limits of the assay. The BK Virus is a DNA virus belonging to the polyomaviruses. The BK Virus assay targets a 274 base pair region of the BK virus genome. This assay utilizes research use only (RUO) reagents for Real-Time nucleic acid amplification (PCR). Results should not be used as the sole basis for clinical diagnosis, treatment or patient management. Performance characteristics have been verified by the Molecular Diagnostic Laboratory within [facility]. The Molecular Diagnostic Laboratory is authorized under the Clinical Laboratory Improvement Amendments of 1988 (CLIA- 88) to perform high complexity testing. [facility] MOLECULAR BK Virus PCR Qnt Negative (03/17/2011 09:25:00) Negative 03/17/2011 Normal [facility] MOLECULAR Source BK Virus PCR Qnt Plasma 03/17/2011 NA [facility] REFERENCE LAB RESULTS Misc [facility] See Report 4 (03/17/2011 09:25:00) 03/17/2011 Normal <sup>4</sup>Result Comment: Immune Cell Function: 239 ng/mL ATP Reference Ranges for Immune Cell Function: < [id number] Low Immune Cell Response 226-524 Moderate Immune Cell Response > [id number] High Immune Cell Response [facility] REFERENCE LAB RESULTS Test Name CYLEX 03/17/2011 Unknown [facility] URINALYSIS UA RBC 2 0 - 2 03/17/2011 Normal [facility] URINALYSIS UA WBC 2 0 - 5 03/17/2011 Normal [facility] URINALYSIS UA Bacteria Occasional /HPF *NA* (03/17/2011 09:25:00) None Seen 03/17/2011 [facility] URINALYSIS UA Hyal Cast 1 0 - 2 03/17/2011 Normal [facility] URINALYSIS UA Ketones Negative mg/dL *NA* (03/17/2011 09:25:00) Negative 03/17/2011 [facility] URINALYSIS UA Bili Negative *NA* (03/17/2011 09:25:00) Negative 03/17/2011 NA [facility] URINALYSIS UA Blood Moderate *ABN* (03/17/2011 09:25:00) Negative 03/17/2011 ABN [facility] URINALYSIS UA Urobilinogen 2.0 0.1 - 1.0 03/17/2011 HI [facility] URINALYSIS UA Nitrite Negative (03/17/2011 09:25:00) Negative 03/17/2011 Normal [facility] URINALYSIS UA Leuk Est Negative (03/17/2011 09:25:00) Negative 03/17/2011 Normal [facility] URINALYSIS UA Sq Epi Many /LPF *ABN* (03/17/2011 09:25:00) Few 03/17/2011 ABN [facility] URINALYSIS UA Protein 70 mg/dL *ABN* (03/17/2011 09:25:00) Negative 03/17/2011 ABN [facility] URINALYSIS UA Glucose >=1000 mg/dL *ABN* (03/17/2011 09:25:00) Negative 03/17/2011 ABN [facility] URINALYSIS UA Spec Grav 1.022 <=1.030 03/17/2011 Normal [facility] URINALYSIS UA Color Yellow *NA* (03/17/2011 09:25:00) Yellow 03/17/2011 NA [facility] URINALYSIS UA Turbidity Slight *ABN* (03/17/2011 09:25:00) Clear 03/17/2011 ABN [facility] URINALYSIS UA pH 6.0 5.0 - 8.0 03/17/2011 Normal [facility] CHEMISTRY U Prot/Creat 0.2 12/16/2010 NA [facility] CHEMISTRY U Creatinine 137.1 12/16/2010 NA <sup>3</sup>Interpretive Data: No established reference ranges. [facility] CHEMISTRY U Protein 31.3 12/16/2010 NA <sup>4</sup>Interpretive Data: No established reference ranges. [facility] CHEMISTRY Cyclosp Tr [place] 116.0 12/16/2010 NA <sup>2</sup>Interpretive Data: Kidney Transplantation: Therapeutic ranges for Cyclosporine trough alone: 100-240 (0-12 mos) 35-170 (>=12 mos) Therapeutic ranges for Cyclosporine trough + Sirolimus: 30-130 (0-12 mos) 20-90 (>=12 mos) Cyclosporine (Neoral) at 2nd Hr after dosing (C2): 460-1200 (&am p;lt;=1 month) 340-710 (1-6 mos) 170-600 (>=12 mos) Kidney-Pancreas and Pancreas Transplantation: Therapeutic ranges for Cyclosporine trough alone: 200-240 (1-3 mos) 70-200 (>3 mos) Sub-therapeutic range for Cyclosporine trough alone: <70 Toxic level for Cyclosporine trough alone: >240 Therapeutic ranges for Cyclosporine trough + Sirolimus: 60-90 (1-3 mos) 15- 60 (>3 mos) Liver Transplantation: Sub-therapeutic range for Cyclosporine (Neoral) trough: <60 Toxic range for Cyclosporine (Neoral) trough: >250 *Troughs are defined by concentration values prior to dosing. *Methodology and Reference Ranges changed 06/07/04 Performed at: [facility] [address], [address] [place] [address] [facility] CHEMISTRY LDL 39.0 0 - 129 12/16/2010 Normal [facility] CHEMISTRY Chol 148.0 120 - 200 12/16/2010 Normal [facility] CHEMISTRY Trig 398.0 0 - 200 12/16/2010 HI [facility] CHEMISTRY HDL 29.0 >>=35 12/16/2010 LOW [facility] CHEMISTRY CHD Risk 5.1 3.90 - 5.80 12/16/2010 Normal [facility] CHEMISTRY LDH 186.0 98 - 192 12/16/2010 Normal [facility] CHEMISTRY BUN 15.0 7 - 22 12/16/2010 Normal [facility] CHEMISTRY Calcium Lvl 9.7 8.5 - 10.5 12/16/2010 Normal [facility] CHEMISTRY AST 29.0 0 - 37 12/16/2010 Normal [facility] CHEMISTRY Bili Total 0.5 0.2 - 1.3 12/16/2010 Normal [facility] CHEMISTRY Creatinine Lvl 1.1 0.5 - 1.4 12/16/2010 Normal [facility] CHEMISTRY Total Protein 7.9 6.4 - 8.4 12/16/2010 Normal [facility] CHEMISTRY Albumin Lvl 4.5 3.5 - 5.0 12/16/2010 Normal [facility] CHEMISTRY Alk Phos 72.0 39 - 136 12/16/2010 Normal [facility] CHEMISTRY ALT 44.0 0 - 65 12/16/2010 Normal [facility] CHEMISTRY Glucose Lvl 186.0 12/16/2010 NA <sup>1</sup>Interpretive Data: Reference Ranges : 0 - 7 days : 41 - 90 mg/dL 7 days - 150 yrs : 70 - 99 mg/dL (fasting), based on the clinical recommendations of the [place] [employer]. [facility] CHEMISTRY CO2 21.0 24 - 32 12/16/2010 LOW [facility] CHEMISTRY Potassium Lvl 4.3 3.5 - 5.1 12/16/2010 Normal [facility] CHEMISTRY Chloride Lvl 101.0 95 - 109 12/16/2010 Normal [facility] CHEMISTRY Sodium Lvl 135.0 135 - 145 12/16/2010 Normal [facility] CHEMISTRY Globulin 3.4 2.0 - 4.0 12/16/2010 Normal [facility] CHEMISTRY A/G Ratio 1.3 0.7 - 1.6 12/16/2010 Normal [facility] CHEMISTRY AGAP 17.3 10.0 - 20.0 12/16/2010 Normal [facility] CHEMISTRY B/C Ratio 14.0 6 - 25 12/16/2010 Normal [facility] CHEMISTRY Phosphorus 2.7 2.5 - 4.5 12/16/2010 Normal [facility] CHEMISTRY Chol 148.0 120 - 200 12/16/2010 Normal [facility] CHEMISTRY Trig 398.0 0 - 200 12/16/2010 HI [facility] CHEMISTRY Uric Acid 3.7 2.5 - 7.0 12/16/2010 Normal [facility] HEMATOLOGY Eosinophils 2.0 0.0 - 4.0 12/16/2010 Normal [facility] HEMATOLOGY Monocytes 7.8 2.0 - 12.0 12/16/2010 Normal [facility] HEMATOLOGY Segs 63.8 45.0 - 75.0 12/16/2010 [facility] HEMATOLOGY Lymphocytes 26.0 20.0 - 40.0 12/16/2010 Normal [facility] HEMATOLOGY Segs-Bands # 5.6 1.5 - 8.1 12/16/2010 Normal [facility] HEMATOLOGY Lymphocytes # 2.3 1.0 - 5.5 12/16/2010 [facility] HEMATOLOGY Basophils 0.4 0.0 - 1.0 12/16/2010 Normal [facility] HEMATOLOGY Eosinophils # 0.2 0.0 - 0.5 12/16/2010 Normal [facility] HEMATOLOGY Basophils # 0.0 0.0 - 0.2 12/16/2010 [facility] HEMATOLOGY Monocytes # 0.7 0.0 - 0.8 12/16/2010 Normal [facility] HEMATOLOGY MPV 9.2 7.4 - 10.4 12/16/2010 Normal [facility] HEMATOLOGY Platelet 234.0 133 - 450 12/16/2010 Normal [facility] HEMATOLOGY RDW 13.1 11.5 - 14.5 12/16/2010 Normal [facility] HEMATOLOGY MCHC 34.8 32.0 - 36.0 12/16/2010 Normal [facility] HEMATOLOGY MCH 33.7 27.0 - 31.0 12/16/2010 [facility] HEMATOLOGY MCV 96.8 81.0 - 99.0 12/16/2010 Normal [facility] HEMATOLOGY Hct 35.0 36.0 - 48.0 12/16/2010 LOW [facility] HEMATOLOGY Hgb 12.2 12.0 - 16.0 12/16/2010 Normal [facility] HEMATOLOGY WBC 8.7 3.7 - 10.4 12/16/2010 Normal [facility] HEMATOLOGY RBC 3.61 4.20 - 5.40 12/16/2010 LOW [facility] URINALYSIS UA WBC 1.0 0 - 5 12/16/2010 Normal [facility] URINALYSIS UA Bili Negative *NA* (12/16/2010 09:20:00) ?? >Negative 12/16/2010 [facility] URINALYSIS UA Nitrite Negative (12/16/2010 09:20:00) ?? >Negative 12/16/2010 Normal [facility] URINALYSIS UA Ketones Negative mg/dL *NA* (12/16/2010 09:20:00) ?? >Negative 12/16/2010 [facility] URINALYSIS UA Urobilinogen 2.0 0.1 - 1.0 12/16/2010 HI [facility] URINALYSIS UA Blood Negative (12/16/2010 09:20:00) ?? >Negative 12/16/2010 Normal [facility] URINALYSIS UA Bacteria Few /HPF *NA* (12/16/2010 09:20:00) ?? >None Seen 12/16/2010 [facility] URINALYSIS UA Sq Epi Many /LPF *ABN* (12/16/2010 09:20:00) ?? >Few 12/16/2010 ABN [facility] URINALYSIS UA Leuk Est Negative (12/16/2010 09:20:00) ?? >Negative 12/16/2010 Normal [facility] URINALYSIS UA RBC 2.0 0 - 2 12/16/2010 Normal [facility] URINALYSIS UA Mucus Few /LPF *NA* (12/16/2010 09:20:00) ?? >None Seen 12/16/2010 NA [facility] URINALYSIS UA Glucose 50 mg/dL *ABN* (12/16/2010 09:20:00) ?? >Negative 12/16/2010 ABN [facility] URINALYSIS UA pH 6.0 5.0 - 8.0 12/16/2010 Normal [facility] URINALYSIS UA Spec Grav 1.018 <<=1.030 12/16/2010 Normal [facility] URINALYSIS UA Turbidity Clear (12/16/2010 09:20:00) ?? >Clear 12/16/2010 Normal [facility] URINALYSIS UA Protein 20 mg/dL *ABN* (12/16/2010 09:20:00) ?? >Negative 12/16/2010 ABN [facility] URINALYSIS UA Color Yellow *NA* (12/16/2010 09:20:00) ?? >Yellow 12/16/2010 NA [facility] Pathology Reports No Data Provided for This Section Diagnostic Reports Report Value Date Source Abdomen/Pelvis w IV contrast CT EXAM: CT ABDOMEN AND PELVIS WITH IV CONTRAST DATE: Jul 08, 2013 11:48:00 AM INDICATION: ABDOMINAL PAIN; S/P RENAL TRANSPLANT ; S/P MULT HERNIA REPAIRS. COMPARISON: CT abdomen without contrast of 03/17/2011, abdomen MRI of 03/10/2005, CT abdomen and pelvis of 02/11/2009 TECHNIQUE: Helical acquisition of the abdomen and pelvis was obtained from the lung bases to the symphysis pubis after administration of IV in the venous and delayed phases of contrast enhancement. Axial, sagittal and coronal images were interpreted. FINDINGS: The regional lungs are clean. There is no pleural effusion. The heart and great vessels are unremarkable. There is no pericardial effusion. The spleen is normal. The right adrenal gland is normal. The left adrenal gland contains small hypodense foci as well as areas of calcification that may represent prior hemorrhage. This appearance is unchanged. The pancreas contains several subcentimeter hypodensities that may represent cysts or side branch IPMN's which are unchanged. The gallbladder is surgically absent. The liver is enlarged, measuring up 20 cm craniocaudal dimension at the mid clavicular line. There are numerous subcentimeter hypodensities that are too small to characterize but likely represent cysts. There is also a nonenhancing, lobulated 2 cm focus in segment 2 of the liver. There is also a similar appearing 1.8 cm hypodensity in segment IVb of the liver adjacent to the falciform ligament. Both of these lesions do not demonstrate appreciable enhancement or filling on on delayed images and likely represent cysts. They do not appear to be changed in size from the comparison study of 03/17/2011. The probable hemangioma seen on the comparison MRI from 2005 is not identified on this study. There is significant diastasis rectus of the abdominal wall with loops of large and small bowel as well as a portion of the stomach and the liver protruding through. There is thinning of the anterior abdominal wall subcutaneous fat. This appearance is unchanged from the comparison. There is no free intraabdominal fluid or air. The patient is status post kidney transplant in the right lower pelvis. The picayune kidneys are surgically absent. The transplant kidney enhances normally and demonstrates normal excretion of contrast into a normal appearing urinary bladder. No focal renal parenchymal lesions are identified. A 2.8 cm round cystic structure is seen in the right adnexal region. A cystic structure in the left adnexal region posterior to the uterus is also identified and measures are 0.8 x 3.0 cm. Compared to the CT scan dated 02/11/2009, both of these have significantly decreased in size. There is no lymphadenopathy. There are atherosclerotic calcifications in the aorta and iliac arteries. The bones are unremarkable. IMPRESSION: 1. No acute abnormality is identified. The study is not significantly changed from the comparison of 03/17/2011 2. Hepatomegaly with multiple complex hepatic cysts which have been stable. Subcentimeter pancreatic cysts have also remained stable. 3. Diastasis of recti muscles in the anterior abdominal wall. The appearance remains unchanged when compared to prior. 4. Interval decrease in size of the cystic structures in the bilateral adnexa from 2009. 07/08/2013 [facility] Consultation Notes No Data Provided for This Section Discharge Summaries No Data Provided for This Section History and Physicals No Data Provided for This Section Vital Signs Vital Sign Value Date Comments Source Weight 77.273 12/25/2013 [facility] Height 167.64 cm 12/25/2013 [facility] BMI Calculated 27.5 12/25/2013 [facility] Systolic (mm Hg) 137 07/08/2013 [facility] Diastolic (mm Hg) 76 07/08/2013 [facility] Respitory Rate 16 07/08/2013 [facility] Heart Rate 75 07/08/2013 [facility] BMI Calculated 33.67 07/08/2013 [facility] Weight 97.3 07/08/2013 [facility] Height 170 cm 07/08/2013 [facility] Diastolic (mm Hg) 77 06/24/2013 [facility] Systolic (mm Hg) 133 06/24/2013 [facility] Heart Rate 108 06/24/2013 [facility] Respitory Rate 48 06/24/2013 [facility] Weight 95.6 06/24/2013 [facility] BMI Calculated 35.07 06/24/2013 [facility] Height 165.1 cm 06/24/2013 [facility] Encounters Location Location Details Encounter Type Encounter Number Reason For Visit Attending Provider ADM Date DC Date Status Source [facility] TP [id number] ABCD, KAROLY DULCE 12/16/2010 Active [facility] TP [id number] POST CLINIC KAROLY DULCE 03/17/2011 Active [facility] TP [id number] POST CLINIC CAROLINE ADROGUE 01/19/2012 Active [facility] WC [id number] LAREGE ABDOMINAL WOUND OMI MICHAELS-EFYARITZAI 04/01/2013 Active [facility] [id number] Omi Simba-Eftekhari 04/01/2013 05/01/2013 [facility] [id number] Omi Simba-Eftekhari 05/13/2013 06/12/2013 [facility] OP Post-Transplant [id number] Caroline Adrogue 06/24/2013 07/24/2013 [facility] OP Post-Transplant [id number] Caroline Adrogue 07/08/2013 08/07/2013 [facility] [id number] Moses Armenta 10/02/2013 11/01/2013 [facility] OP Post-Transplant [id number] Caroline Adrogue 10/16/2013 11/15/2013 [facility] [id number] Moses Armenta 11/13/2013 12/13/2013 [facility] [id number] Moses Armenta 12/25/2013 01/24/2014 [facility] [id number] Moses Armenta 02/19/2014 03/21/2014 [facility] TP [id number] ABC, D, MYCO CAROLINE ADROGUE Active [facility] TP [id number] A,B, C, D CAROLINE ADROGUE Active [facility] Procedures Procedure Code Date Perfomer Comments Source Renal transplant [id number] 03/22/2004 [facility] Craniotomy [id number] [facility] Hernia repair [id number] [facility] Assessment and Plan No Data Provided for This Section Plan of Care No Data Provided for This Section Social History Social History Date Source Social History TypeResponse Smoking Status Never smoker, Exposure to Tobacco Smoke None, Cigarette Smoking Last 365 Days No, Reg Smoking Cessation Counseling No 06/24/2013 [facility] Family History No Data Provided for This Section Advance Directives No Data Provided for This Section Functional Status No Data Provided for This Section
--- OUTSIDE RECORDS SUMMARY | 2018-08-04 14:19 | XMS REPORT | CCD ---
Author Author Auto Generated Organization [facility] [place], [place] Address Unknown Phone Unavailable Care Team Providers Care Stand Grinder Name Role Phone Wilma Granger CP Unavailable Dionisio Barakat CP Unavailable Britany Serrano CP Unavailable Jose Mittal PP Shaheen Goode CP Unavailable Valarie Salomon CP Unavailable Dionne, [place] CP Unavailable Sandie Knight CP Unavailable Brody Ruggiero PP [phone] Bry Trinh CP Bob Lainez PP [phone] Radha Castle PP Unavailable Charli Johnson RP SYSTEM, SYSTEM CP Unavailable Urmila Song CP Ileana Cohn CP Jenelle Navas CP Unavailable Barbie Ordaz CP Unavailable Kisha Hale CP [phone] Jarret Patel PP Princess Chávez CP [phone] Allergies, Adverse Reactions, Alerts Substance Reaction Status codeine ?? Canceled morphine ?? Canceled NKDA ?? Active Problem List Condition Effective Dates Status Bowel obstruction < 11/20/2009 Resolved Lethargic < 11/20/2009 Resolved Pain ?? Active Sinus bradycardia < 11/20/2009 Resolved Wound care assessment ?? Active Results URINALYSIS Most recent to oldest [Reference Range]: 1 2 UA Turbidity [>Clear] Clear (12/16/2010 09:20:00) ? UA Color [>Yellow] Yellow *NA* (12/16/2010 09:20:00) ? UA pH [5.0-8.0] 6.0 (12/16/2010 09:20:00) ? UA Spec Grav [<<=1.030] 1.018 (12/16/2010:20:00) ? UA Glucose [>Negative mg/dL] 50 mg/dL *ABN* (12/16/2010 09:20:00) ? UA Blood [>Negative] Negative (12/16/2010:20:00) ? UA Ketones [>Negative mg/dL] Negative mg/dL *NA* (12/16/2010:20:00) ? UA Protein [>Negative mg/dL] 20 mg/dL *ABN* (12/16/2010:20:00) ? UA Urobilinogen [0.1-1.0 mg/dL] 2.0 mg/dL *HI* (12/16/2010:20:00) ? UA Bili [>Negative] Negative *NA* (12/16/2010 09:20:00) ? UA Leuk Est [>Negative] Negative (12/16/2010 09:20:00) ? UA Nitrite [>Negative] Negative (12/16/2010:20:00) ? UA WBC [0-5 /HPF] 1 /HPF (12/16/2010 09:20:00) ? UA RBC [0-2 /HPF] 2 /HPF (12/16/2010 09:20:00) ? UA Bacteria [>None Seen /HPF] Few /HPF *NA* (12/16/2010 09:20:00) ? UA Sq Epi [>Few /LPF] Many /LPF *ABN* (12/16/2010 09:20:00) ? UA Mucus [>None Seen /LPF] Few /LPF *NA* (12/16/2010 09:20:00) ? CHEMISTRY Most recent to oldest [Reference Range]: 1 2 Sodium Lvl [135-145 mEq/L] 135 mEq/L (12/16/2010 09:20:00) ? Potassium Lvl [3.5-5.1 mEq/L] 4.3 mEq/L (12/16/2010:20:00) ? Chloride Lvl [95-109 mEq/L] 101 mEq/L (12/16/2010:20:00) ? CO2 [24-32 mEq/L] 21 mEq/L *LOW* (12/16/2010:20:00) ? AGAP [10.0-20.0 mEq/L] 17.3 mEq/L (12/16/2010:20:00) ? Creatinine Lvl [0.5-1.4 mg/dL] 1.1 mg/dL (12/16/2010:20:00) ? BUN [7-22 mg/dL] 15 mg/dL (12/16/2010:20:00) ? B/C Ratio [6-25] 14 (12/16/2010:20:00) ? Glucose Lvl 186 mg/dL 1 *NA* (12/16/2010:20:00) ? Uric Acid [2.5-7.0 mg/dL] 3.7 mg/dL (12/16/2010:20:00) ? Total Protein [6.4-8.4 g/dL] 7.9 g/dL (12/16/2010:20:00) ? Albumin Lvl [3.5-5.0 g/dL] 4.5 g/dL (12/16/2010:20:00) ? Globulin [2.0-4.0 g/dL] 3.4 g/dL (12/16/2010:20:00) ? A/G Ratio [0.7-1.6] 1.3 (12/16/2010:20:00) ? Calcium Lvl [8.5-10.5 mg/dL] 9.7 mg/dL (12/16/2010:20:00) ? Phosphorus [2.5-4.5 mg/dL] 2.7 mg/dL (12/16/2010 09:20:00) ? ALT [0-65 U/L] 44 U/L (12/16/2010 09:20:00) ? AST [0-37 U/L] 29 U/L (12/16/2010:20:00) ? Alk Phos [39-136 U/L] 72 U/L (12/16/2010 09:20:00) ? LDH [98-192 U/L] 186 U/L (12/16/2010:20:00) ? Bili Total [0.2-1.3 mg/dL] 0.5 mg/dL (12/16/2010 09:20:00) ? CHD Risk [3.90-5.80] 5.10 (12/16/2010:20:00) ? Chol [120-200 mg/dL] 148 mg/dL (12/16/2010 09:20:00) ?? 148 mg/dL (12/16/2010 09:20:00) ?? Trig [0-200 mg/dL] 398 mg/dL *HI* (12/16/2010:20:00) ?? 398 mg/dL *HI* (12/16/2010:20:00) ?? HDL [>>=35 mg/dL] 29 mg/dL *LOW* (12/16/2010 09:20:00) ? LDL [0-129 mg/dL] 39 mg/dL (12/16/2010 09:20:00) ? Cyclosp Tr UT 116.0 ng/mL 2 *NA* (12/16/2010 09:20:00) ? U Creatinine 137.1 mg/dL 3 *NA* (12/16/2010 09:20:00) ? U Protein 31.3 mg/dL 4 *NA* (12/16/2010:20:00) ? U Prot/Creat 0.2 *NA* (12/16/2010 09:20:00) ? 1Interpretive Data: Reference Ranges : 0 - 7 days : 41 - 90 mg/dL7 days - 150 yrs : 70 - 99 mg/dL (fasting), based on the clinical recommendations of the [place] [employer]. 2Interpretive Data: Kidney Transplantation: Therapeutic ranges for Cyclosporine trough alone: 100-240 (0-12 mos) 35-170 (> =12 mos) Therapeutic ranges for Cyclosporine trough + Sirolimus: 30-130 (0-12 mos) 20-90 (>=12 mos) Cyclosporine (Neoral) at 2nd Hr after dosing (C2): 460-1200 (<=1 month) 340-710 (1- 6 mos) 170-600 (>=12 mos)Kidney-Pancreas and Pancreas Transplantation: Therapeutic ranges for Cyclosporine trough alone: 200-240 (1-3 mos) 70-200 (>3 mos) Sub-therapeutic range for Cyclosporine trough alone: <70 Toxic level for Cyclosporine trough alone: > 240 Therapeutic ranges for Cyclosporine trough + Sirolimus: 60-9 0 (1-3 mos) 15-60 (>3 mos)Liver Transplantation: Sub- therapeutic range for Cyclosporine (Neoral) trough: <60 Toxic range for Cyclosporine (Neoral) trough: >250*Troughs are defined by concentration values prior to dosing.*Methodology and Reference Ranges changed 06/07/04Performed at:[facility] [address], [address] [place] [address] 3Interpretive Data: No established reference ranges. 4Interpretive Data: No established reference ranges. HEMATOLOGY Most recent to oldest [Reference Range]: 1 2 WBC [3.7-10.4 K/CMM] 8.7 K/CMM (12/16/2010 09:20:00) ? RBC [4.20-5.40 M/CMM] 3.61 M/CMM *LOW* (12/16/2010 09:20:00) ? Hgb [12.0-16.0 g/dL] 12.2 g/dL (12/16/2010 09:20:00) ? Hct [36.0-48.0 %] 35.0 % *LOW* (12/16/2010 09:20:00) ? MCV [81.0-99.0 fL] 96.8 fL (12/16/2010 09:20:00) ? MCH [27.0-31.0 pg] 33.7 pg *HI* (12/16/2010:20:00) ? MCHC [32.0-36.0 g/dL] 34.8 g/dL (12/16/2010 09:20:00) ? RDW [11.5-14.5 %] 13.1 % (12/16/2010 09:20:00) ? Platelet [133-450 K/CMM] 234 K/CMM (12/16/2010:20:00) ? MPV [7.4-10.4 fL] 9.2 fL (12/16/2010:20:00) ? Segs [45.0-75.0 %] 63.8 % (12/16/2010:20:) ? Lymphocytes [20.0-40.0 %] 26.0 % (12/16/2010:20:00) ? Monocytes [2.0-12.0 %] 7.8 % (12/16/2010:20:00) ? Eosinophils [0.0-4.0 %] 2.0 % (12/16/2010:20:00) ? Basophils [0.0-1.0 %] 0.4 % (12/16/2010:20:) ? Segs-Bands # [1.5-8.1 K/CMM] 5.6 K/CMM (12/16/2010 09:20:00) ? Lymphocytes # [1.0-5.5 K/CMM] 2.3 K/CMM (12/16/2010 09:20:00) ? Monocytes # [0.0-0.8 K/CMM] 0.7 K/CMM (12/16/2010 09:20:00) ? Eosinophils # [0.0-0.5 K/CMM] 0.2 K/CMM (12/16/2010 09:20:00) ? Basophils # [0.0-0.2 K/CMM] 0.0 K/CMM (12/16/2010 09:20:00) ?
--- OUTSIDE RECORDS SUMMARY | 2018-08-04 14:20 | XMS REPORT | Summary of Care ---
Author Organization Unknown Address Unknown Phone Unavailable Care Team Providers Care Industrial Electrical Technician Name Role Phone Jarret Patel PCP Bob Lainez PCP Radha Castle PCP Unavailable Brody Ruggiero PCP Jose Mittal PCP Encounter [facility]) [id number] Date(s): 06/24/13 - 07/23/[address] Discharge Disposition: Home Physician Attending: Jv Lloyd MD Physician_Referring: Jv Lloyd MD Reason for Visit POST CLINIC Vital Signs Most recent to 1 oldest [Reference Range]: Height 165.1 cm (06/24/13 10:29 AM) Systolic Blood 133 mmHg Pressure [90-140 (06/24/13 10:29 AM) mmHg] Diastolic Blood 77 mmHg Pressure [60-90 (06/24/13 10:29 AM) mmHg] Respiratory Rate 48 BRMIN [14-20 BRMIN] *HI* (06/24/13 10:29 AM) Peripheral Pulse 108 bpm Rate [60-100 bpm] *HI* (06/24/13 10:29 AM) Weight 95.6 kg (06/24/13 10:29 AM) Body Mass Index 35.07 m2 (06/24/13 10:29 AM) Problem List Condition Effective Dates Status Health Status Informant Bowel < 1510 Resolved obstruction(Confirme d) Diabetes mellitus Resolved type 2(Confirmed) Lethargic(Confirmed) < 15/10 Resolved Pain(Confirmed)(Stab Active le) Polycystic kidney Resolved disease(Confirmed) Sinus < 10 Resolved bradycardia(Confirme d) Wound care Active assessment(Confirmed ) Allergies, Adverse Reactions, Alerts Substance Reaction Severity Status NKDA Active Medications Bactrim oral tablet 1 tab, PO, Q-M-W-F, 0 Refill(s) Start Date: 06/24/13 Stop Date: 06/24/13 Status: Discontinued glipiZIDE 10 mg oral tablet 10 mg=1 tab, PO, BID, # 30 tab, 0 Refill(s) Start Date: 06/24/13 Status: Ordered hydrALAZINE 25 mg oral tablet 25 mg=1 tab, PO, BID, # 360 tab, 0 Refill(s) Start Date: 06/24/13 Status: Ordered Levemir 100 units/mL See Special Instructions, SUB-Q, BID, Inject 35 units at 9am and inject 25 unit s at 9pm, vial, 0 Refill(s) Special Instructions: Inject 35 units at 9am and inject 25 units at 9pm Start Date: 06/24/13 Status: Ordered Lopid 600 mg oral tablet 600 mg=1 tab, PO, BID, # 180 tab, 0 Refill(s) Start Date: 06/24/13 Status: Ordered losartan 25 mg oral tablet 25 mg=1 tab, PO, Daily, # 90 tab, 0 Refill(s) Start Date: 06/24/13 Status: Ordered Lovaza oral capsule 2,000 mg=2 cap, PO, BID, # 120 cap, 0 Refill(s) Start Date: 06/24/13 Status: Ordered Myfortic 360 mg oral enteric coated tablet 720 mg=2 tab, PO, BID, # 120 tab, 0 Refill(s) Start Date: 06/24/13 Status: Ordered Neoral 100 mg oral capsule 100 mg=1 cap, PO, BID, # 60 cap, 0 Refill(s) Start Date: 06/24/13 Status: Ordered PROzac 40 mg oral capsule 40 mg=1 cap, PO, Daily, # 90 cap, 0 Refill(s) Start Date: 06/24/13 Status: Ordered simvastatin 40 mg oral tablet 40 mg=1 tab, PO, Bedtime, # 90 tab, 0 Refill(s) Start Date: 06/24/13 Stop Date: 09/22/13 Status: Ordered Medications Administered During Your Visit No data available for this section Immunizations No data available for this section Procedures Procedure Type Body Site Date of Procedure Related Diagnosis Renal transplant 03/22/04 12:00 AM Social History Social History Type Response Smoking Status Never smoker, Exposure to Tobacco Smoke None, Cigarette Smoking Last 365 Days No, Reg Smoking Cessation Counseling No
--- OUTSIDE RECORDS SUMMARY | 2018-08-04 14:20 | XMS REPORT | CCD ---
Author Author Auto Generated Organization [facility] Address Unknown Phone Unavailable Care Team Providers Care Top Ironer Name Role Phone Jose Mittal PP ShayaniainBrody PP [phone] Bob Lainez PP [phone] Radha Castle PP Unavailable Jv Lloyd RP Jarret Patel PP Allergies, Adverse Reactions, Alerts Substance Reaction Status NKDA Active Problem List Condition Effective Dates Status Bowel obstruction < 11/20/2009 Resolved Lethargic < 11/20/2009 Resolved Pain Active Sinus bradycardia < 11/20/2009 Resolved Wound care assessment Active Results INFECTIOUS DISEASES Most recent to oldest [Reference Range]: 1 2 Source CMV PCR Qnt Blood *NA* (01/19/2012 09:30:00) CMV PCR Qnt [Negative] Negative (01/19/2012 09:30:00) CMV PCR Qnt (log) <2.4 log 1 *NA* (01/19/2012 09:30:00) Source BK Virus PCR Qnt Plasma *NA* (01/19/2012 09:30:00) BK Virus PCR Qnt [Negative] Negative (01/19/2012 09:30:00) BK Virus PCR Qnt (log) <2.0 log 2 *NA* (01/19/2012 09:30:00) 1Interpretive Data: Analytic Quantification Range: 250-2,500,000 copies/mL (2.4-6.4 [...] DNA virus belonging to the herpes virus fam ben. The CMV Virus assay targets a 105 base pair region of the CMV virus genome. This assay utilizes analyte specific (ASR) reagents for Real-Time nucleic acid a mplification (PCR). Results should not be used as the sole basis for clinical di agnosis, treatment or patient management. Performance characteristics have been verified by the [facility] within [facility]. The [facility] is authorized under the Clinical Laboratory Imp rovement Amendments of 1988 (CLIA-88) to perform high complexity testing. 2Interpretive Data: Analytic Quantification Range: 100-400,000,000 copies/mL (2.0-8.6 [...] specific (ASR) reagents for Real-Time nucleic acid a mplification (PCR). Results should not be used as the sole basis for clinical di agnosis, treatment or patient management. Performance characteristics have been verified by the [facility] within [facility]. The [facility] is authorized under the Clinical Laboratory Imp rovement Amendments of 1988 (CLIA-88) to perform high complexity testing. URINALYSIS Most recent to oldest [Reference Range]: 1 2 UA Turbidity [Clear] Slight *ABN* (01/19/2012 09:30:00) UA Color [Yellow] Yellow *NA* (01/19/2012 09:30:00) UA pH [5.0-8.0] 5.5 (01/19/2012 09:30:00) UA Spec Grav [<=1.030] 1.021 (01/19/2012 09:30:00) UA Glucose [Negative mg/dL] Negative mg/dL *NA* (01/19/2012 09:30:00) UA Blood [Negative] Negative (01/19/2012:30:00) UA Ketones [Negative mg/dL] Negative mg/dL *NA* (01/19/2012:30:00) UA Protein [Negative mg/dL] 20 mg/dL *ABN* (01/19/2012:30:00) UA Urobilinogen [0.1-1.0 mg/dL] <=1.0 mg/dL *NA* (01/19/2012:30:00) UA Bili [Negative] Negative *NA* (01/19/2012:30:00) UA Leuk Est [Negative] Negative (01/19/2012:30:00) UA Nitrite [Negative] Negative (01/19/2012:30:00) UA WBC [0-5 /HPF] 3 /HPF (01/19/2012:30:00) UA RBC [0-2 /HPF] 2 /HPF (01/19/2012:30:00) UA Bacteria [None Seen /HPF] Moderate /HPF *ABN* (01/19/2012:30:00) UA Sq Epi [Few /LPF] Many /LPF *ABN* (01/19/2012:30:00) UA Mucus [None Seen /LPF] Few /LPF *NA* (01/19/2012:30:00) CHEMISTRY Most recent to oldest [Reference Range]: 1 2 Sodium Lvl [135-145 mEq/L] 138 mEq/L (01/19/2012:30:00) 138 mEq/L (01/19/2012:30:00) Potassium Lvl [3.5-5.1 mEq/L] 4.5 mEq/L (01/19/2012:30:00) 4.5 mEq/L (01/19/2012:30:00) Chloride Lvl [95-109 mEq/L] 104 mEq/L (01/19/2012:30:00) 104 mEq/L (01/19/2012:30:00) CO2 [24-32 mEq/L] 20 mEq/L *LOW* (01/19/2012:30:00) 20 mEq/L *LOW* (01/19/2012:30:00) AGAP [10.0-20.0 mEq/L] 18.5 mEq/L (01/19/2012:30:00) 18.5 mEq/L (01/19/2012:30:00) Creatinine Lvl [0.5-1.4 mg/dL] 1.0 mg/dL (01/19/2012:30:00) 1.0 mg/dL (01/19/2012:30:00) eGFR 67 mL/min/1.73m2 3 *NA* (01/19/201230:00) 67 mL/min/1.73m2 4 *NA* (01/19/2012:30:00) BUN [7-22 mg/dL] 18 mg/dL (01/19/2012:30:00) 18 mg/dL (01/19/2012:30:00) B/C Ratio [6-25] 18 (01/19/2012:30:00) 18 (01/19/2012:30:00) Glucose Lvl [70-99 mg/dL] 162 mg/dL 5 *HI* (01/19/201230:00) 162 mg/dL 6 *HI* (01/19/2012:30:00) Uric Acid [2.5-7.0 mg/dL] 3.9 mg/dL (01/19/2012:30:00) Total Protein [6.4-8.4 g/dL] 8.3 g/dL (01/19/2012:30:00) 8.3 g/dL (01/19/2012:30:00) Albumin Lvl [3.5-5.0 g/dL] 4.8 g/dL (01/19/201230:00) 4.8 g/dL (01/19/2012:30:00) Globulin [2.0-4.0 g/dL] 3.5 g/dL (01/19/201230:00) 3.5 g/dL (01/19/201230:00) A/G Ratio [0.7-1.6] 1.4 (01/19/2012:30:00) 1.4 (01/19/2012:30:00) Calcium Lvl [8.5-10.5 mg/dL] 10.0 mg/dL (01/19/2012:30:00) 10.0 mg/dL (01/19/2012:30:00) Phosphorus [2.5-4.5 mg/dL] 2.7 mg/dL (01/19/2012:30:00) Magnesium Lvl [1.8-2.4 mg/dL] 1.8 mg/dL (01/19/2012:30:00) ALT [0-65 unit/L] 47 unit/L (01/19/2012:00) 47 unit/L (01/19/2012:00) AST [0-37 unit/L] 25 unit/L (01/19/201200) 25 unit/L (01/19/2012:00) Alk Phos [39-136 unit/L] 58 unit/L (01/19/2012:00) 58 unit/L (01/19/2012::00) LDH [98-192 unit/L] 173 unit/L (01/19/2012:30:00) Bili Total [0.2-1.3 mg/dL] 0.6 mg/dL (01/19/2012:00) 0.6 mg/dL (01/19/2012:00) CHD Risk [3.90-5.80] 4.52 (01/19/2012:30:00) Chol [120-200 mg/dL] 131 mg/dL (01/19/201230:00) 131 mg/dL (01/19/2012:30:00) Trig [0-200 mg/dL] 305 mg/dL *HI* (01/19/2012::00) 305 mg/dL *HI* (01/19/2012:00) HDL [>=35 mg/dL] 29 mg/dL *LOW* (01/19/2012:30:00) LDL [0-129 mg/dL] 41 mg/dL (01/19/2012:30:00) LDL Direct [0-129 mg/dL] 67 mg/dL (01/19/2012 09:30:00) Hgb A1C 6.7 % 7 *NA* (01/19/2012:30:00) Cyclosp Tr [50.0-350.0 ng/mL] 85.6 ng/mL (01/19/2012:30:00) Immune Cell Func 188 8 *LOW* (01/19/2012:30:00) U Creatinine 142.1 mg/dL 9 *NA* (01/19/2012:30:00) U Protein 28.7 mg/dL 10 *NA* (01/19/2012:30:00) U Prot/Creat 0.2 *NA* (01/19/2012:30:00) 3Result Comment: The eGFR is calculated using the CKD-EPI formula. In most young, healthy individuals the eGFR will be >90 mL/min/1.73m2. The eGFR declines with age. An eGFR of 60-89 may be normal in some populations, particularly the elderly, for whom the CKD-EPI formula has not been extensively validated. Use of the eGFR is not recommended in the following populations: Individuals with unstable creatinine concentrations, including patients and those with serious co-morbid conditions. Patients with extremes in muscle mass or diet. The data above are obtained from the National Kidney Disease Education Program ( NKDEP) which additionally recommends that when the eGFR is used in patients with extremes of body mass index for purposes of drug dosing, the eGFR should be mul tiplied by the estimated BMI. 4Result Comment: The eGFR is calculated using the CKD-EPI formula. In most young, healthy individuals the eGFR will be >90 mL/min/1.73m2. The eGFR declines with age. An eGFR of 60-89 may be normal in some populations, particularly the elderly, for whom the CKD-EPI formula has not been extensively validated. Use of the eGFR is not recommended in the following populations: Individuals with unstable creatinine concentrations, including patients and those with serious co-morbid conditions. Patients with extremes in muscle mass or diet. The data above are obtained from the National Kidney Disease Education Program ( NKDEP) which additionally recommends that when the eGFR is used in patients with extremes of body mass index for purposes of drug dosing, the eGFR should be mul tiplied by the estimated BMI. 5Interpretive Data: Adult reference range values reflect the clinical guidelines of the [place] [employer]. 6Interpretive Data: Adult reference range values reflect the clinical guidelines of the [place] [employer]. 7Interpretive Data: HbA1C% eAG(mg/dL) Interpretation 6.0 126 Very good control 6.5 140 Very good control 7.0 154 Good Control 7.5 169 Good Control 8.0 183 Marginal Control, take action to lower 8.5 197 Marginal Control, take action to lower 9.0 212 Poor Control, take action to lower 9.5 226 Poor Control, take action to lower 10.0 240 Poor Control, take action to lower 8Result Comment: Reference Range < ym=217 Low immune cell response 226-524 Moderate immune cell response > nl=510 High immune cell response Test Performed at: [facility] [address] [id number] JOI NARAYAN M.D. 9Interpretive Data: No established reference ranges. 10Interpretive Data: No established reference ranges. HEMATOLOGY Most recent to oldest [Reference Range]: 1 2 WBC [3.7-10.4 K/CMM] 7.9 K/CMM (01/19/2012 09:30:00) RBC [4.20-5.40 M/CMM] 3.87 M/CMM *LOW* (01/19/2012 09:30:00) Hgb [12.0-16.0 g/dL] 12.7 g/dL (01/19/2012 09:30:00) Hct [36.0-48.0 %] 37.3 % (01/19/2012 09:30:00) MCV [81.0-99.0 fL] 96.2 fL (01/19/2012 09:30:00) MCH [27.0-31.0 pg] 32.8 pg *HI* (01/19/2012 09:30:00) MCHC [32.0-36.0 g/dL] 34.2 g/dL (01/19/2012 09:30:00) RDW [11.5-14.5 %] 14.7 % *HI* (01/19/2012 09:30:00) Platelet [133-450 K/CMM] 293 K/CMM (01/19/2012 09:30:00) MPV [7.4-10.4 fL] 9.3 fL (01/19/2012 09:30:00) Segs [45.0-75.0 %] 52.2 % (01/19/2012 09:30:00) Lymphocytes [20.0-40.0 %] 36.3 % (01/19/2012 09:30:00) Monocytes [2.0-12.0 %] 7.9 % (01/19/2012 09:30:00) Eosinophils [0.0-4.0 %] 2.9 % (01/19/2012 09:30:00) Basophils [0.0-1.0 %] 0.7 % (01/19/2012 09:30:00) Segs-Bands # [1.5-8.1 K/CMM] 4.1 K/CMM (01/19/2012 09:30:00) Lymphocytes # [1.0-5.5 K/CMM] 2.9 K/CMM (01/19/2012 09:30:00) Monocytes # [0.0-0.8 K/CMM] 0.6 K/CMM (01/19/2012 09:30:00) Eosinophils # [0.0-0.5 K/CMM] 0.2 K/CMM (01/19/2012 09:30:00) Basophils # [0.0-0.2 K/CMM] 0.1 K/CMM (01/19/2012 09:30:00) IMMUNOLOGY Most recent to oldest [Reference Range]: 1 2 Source WHOLE BLOOD *NA* (01/19/2012 09:30:00) EBV PCR Ql NOT DETECTED 11 *NA* (01/19/2012 09:30:00) 11Result Comment: REFERENCE RANGE: NOT DETECTED This test was developed and its performance characteristics have been determined by [employer]. It has not been cleared or approved by the U.S. Food and Drug Administration. The FDA has determined that such clearance or approval is not necessary. Performance characteristics refer to the analytical performance of the test. Test Performed at: [facility] [address] [place] [id number] Tricia Lynn MD Microbiology Reports PROCEDURE:Culture: Urine STATUS: Auth (Verified) BODY SITE: COLLECTED DATE/TIME: 01/19/2012 20:51:00 SOURCE: Urine, Clean Catch FREE TEXT SOURCE: FINAL REPORTS Final Report <10,000 CFU/mL [facility] PRELIMINARY REPORTS Preliminary Report No Growth; Holding
--- OUTSIDE RECORDS SUMMARY | 2018-08-04 14:20 | XMS REPORT | CCD ---
Author Author Auto Generated Organization [facility] Address Unknown Phone Unavailable Care Team Providers Care Mannequin Molder Name Role Phone Jose Mittal PP MonikBrody PP [phone] Bob Lainez PP [phone] Radha Castle PP Unavailable Charli Johnson RP Jarret Patel PP Allergies, Adverse Reactions, Alerts Substance Reaction Status codeine Canceled morphine Canceled NKDA Active Problem List Condition Effective Dates Status Bowel obstruction < 11/20/2009 Resolved Lethargic < 11/20/2009 Resolved Pain Active Sinus bradycardia < 11/20/2009 Resolved Wound care assessment Active Results MOLECULAR Most recent to oldest [Reference Range]: 1 2 Source CMV PCR Qnt Blood (03/17/2011 09:25:00) CMV PCR Qnt [Negative] Negative (03/17/2011 09:25:00) CMV PCR Qnt (log) <2.4 log 1 *NA* (03/17/2011 09:25:00) Source BK Virus PCR Qnt Plasma *NA* (03/17/2011 09:25:00) BK Virus PCR Qnt [Negative] Negative (03/17/2011 09:25:00) BK Virus PCR Qnt (log) <2.0 log 2 *NA* (03/17/2011 09:25:00) 1Interpretive Data: Analytic Quantification Range: 250-2,500,000 copies/mL (2.4-6.4 log)CMV DNA detected below 250 copies/mL will be resulted as "CMV DNAdetected, less than 250 copies/mL."No target CMV DNA detected will be reported as "CMV DNA notdetected." A negative result does not rule out the possibilityof the presence of Cytomegalovirus. The specimen may contain CMVbelow the detectable limits of the assay.The human Cytomegalovirus (CMV) is a DNA virus belonging to theherpes virus family. The CMV assay targets a 105 base pair regionof the CMV genome.This assay utilizes research use only (RUO) reagents for Real-Timenucleic acid amplification (PCR). Results should not be used asthe sole basis for clinical diagnosis, treatment or patientmanagement. Performance characteristics have been verified by the[facility] within [facility]. TheMolecular Diagnostic Laboratory is authorized under the ClinicalLaboratory Improvement Amendments of 1988 (CLIA-88) to performhigh complexity testing. 2Interpretive Data: Analytic Quantification Range: 100-400,000,000 copies/mL (2.0-8.6 log)BK DNA detected below 100 copies/mL will be resulted as "BK DNAdetected, less than 100 copies/mL."No target BK DNA detected will be reported as "BK DNA not detected."A negative result does not rule out the possibility of the presenceof the BK virus. The specimen may contain BK below the detectablelimits of the assay.The BK Virus is a DNA virus belonging to the polyomaviruses. The BKVirus assay targets a 274 base pair region of the BK virus genome.This assay utilizes research use only (RUO) reagents for Real- Timenucleic acid amplification (PCR). Results should not be used as thesole basis for clinical diagnosis, treatment or patient management.Performance characteristics have been verified by the [facility]. The MolecularDiagn[facility] Laboratory is authorized under the Clinical LaboratoryImprovement Amendments of 1988 (CLIA-88) to perform high complexitytesting. REFERENCE LAB RESULTS Most recent to oldest [Reference Range]: 1 2 Misc [facility] See Report 3 (03/29/2011 09:45:00) See Report 4 (03/17/2011 09:25:00) Test Name CYLEX *Unknown* (03/29/2011 09:45:00) CYLEX *Unknown* (03/17/2011 09:25:00) 3Result Comment: Immune Cell Function:280 ng/mL ATPReference Ranges for Immune Cell Function:< yi=790 Low Immune Cell [id number] Immune Cell Response> bw=374 High Immune Cell Response 4Result Comment: Immune Cell Function:239 ng/mL ATPReference Ranges for Immune Cell Function:< sv=942 Low Immune Cell Bjsxxfnr073-589Limopyol Immune Cell Response> ti=926 High Immune Cell Response URINALYSIS Most recent to oldest [Reference Range]: 1 2 UA Turbidity [Clear] Slight *ABN* (03/29/2011 09:45:00) Slight *ABN* (03/17/2011 09:25:00) UA Color [Yellow] Yellow *NA* (03/29/2011 09:45:00) Yellow *NA* (03/17/2011:25:00) UA pH [5.0-8.0] 6.0 (03/29/2011:45:00) 6.0 (03/17/2011 09:25:00) UA Spec Grav [<=1.030] 1.022 (03/29/2011 09:45:00) 1.022 (03/17/2011 09:25:00) UA Glucose [Negative mg/dL] >=1000 mg/dL *ABN* (03/29/2011 09:45:00) >=1000 mg/dL *ABN* (03/17/2011 09:25:00) UA Blood [Negative] Negative (03/29/2011 09:45:00) Moderate *ABN* (03/17/2011 09:25:00) UA Ketones [Negative mg/dL] Negative mg/dL *NA* (03/29/2011 09:45:00) Negative mg/dL *NA* (03/17/2011 09:25:00) UA Protein [Negative mg/dL] 70 mg/dL *ABN* (03/29/2011 09:45:00) 70 mg/dL *ABN* (03/17/2011 09:25:00) UA Urobilinogen [0.1-1.0 mg/dL] <=1.0 mg/dL *NA* (03/29/2011 09:45:00) 2.0 mg/dL *HI* (03/17/2011 09:25:00) UA Bili [Negative] Negative *NA* (03/29/2011 09:45:00) Negative *NA* (03/17/2011 09:25:00) UA Leuk Est [Negative] Negative (03/29/2011:45:00) Negative (03/17/2011 09:25:00) UA Nitrite [Negative] Negative (03/29/2011:45:00) Negative (03/17/2011:25:00) UA WBC [0-5 /HPF] 3 /HPF (03/29/2011 09:45:00) 2 /HPF (03/17/2011 09:25:00) UA RBC [0-2 /HPF] 2 /HPF (03/29/2011:45:00) 2 /HPF (03/17/2011 09:25:00) UA Bacteria [None Seen /HPF] Few /HPF *NA* (03/29/2011:45:00) Occasional /HPF *NA* (03/17/2011:25:00) UA Sq Epi [Few /LPF] Many /LPF *ABN* (03/29/2011 09:45:00) Many /LPF *ABN* (03/17/2011 09:25:00) UA Hyal Cast [0-2 /LPF] 1 /LPF (03/17/2011 09:25:00) UA Amorph Denise [None Seen /HPF] Occasional /HPF *NA* (03/29/2011:45:00) UA Renal Epi [<=0 /LPF] 3 /LPF *HI* (03/29/2011:45:00) UA Mucus [None Seen /LPF] Few /LPF *NA* (03/29/2011 09:45:00) CHEMISTRY Most recent to oldest [Reference Range]: 1 2 Sodium Lvl [135-145 mEq/L] 135 mEq/L (03/29/2011:45:00) 137 mEq/L (03/17/2011 09:25:00) Potassium Lvl [3.5-5.1 mEq/L] 4.5 mEq/L (03/29/2011:45:00) 4.6 mEq/L (03/17/2011 09:25:00) Chloride Lvl [95-109 mEq/L] 98 mEq/L (03/29/2011 09:45:00) 102 mEq/L (03/17/2011 09:25:00) CO2 [24-32 mEq/L] 25 mEq/L (03/29/2011:45:00) 23 mEq/L *LOW* (03/17/2011:25:00) AGAP [10.0-20.0 mEq/L] 16.5 mEq/L (03/29/2011:45:00) 16.6 mEq/L (03/17/2011:25:00) Creatinine Lvl [0.5-1.4 mg/dL] 1.1 mg/dL (03/29/2011:45:00) 1.2 mg/dL (03/17/2011:25:00) BUN [7-22 mg/dL] 15 mg/dL (03/29/201145:00) 17 mg/dL (03/17/201125:00) B/C Ratio [6-25] 14 (03/29/2011:45:00) 14 (03/17/2011:25:00) Glucose Lvl 326 mg/dL 5 *NA* (03/29/2011:45:00) 294 mg/dL 6 *NA* (03/17/2011:25:00) Uric Acid [2.5-7.0 mg/dL] 3.8 mg/dL (03/29/2011:45:00) 3.9 mg/dL (03/17/2011:25:00) Total Protein [6.4-8.4 g/dL] 8.1 g/dL (03/29/2011:45:00) 8.1 g/dL (03/17/2011:25:00) Albumin Lvl [3.5-5.0 g/dL] 4.3 g/dL (03/29/201145:00) 4.3 g/dL (03/17/2011:25:00) Globulin [2.0-4.0 g/dL] 3.8 g/dL (03/29/201145:00) 3.8 g/dL (03/17/2011:25:00) A/G Ratio [0.7-1.6] 1.1 (03/29/2011:45:00) 1.1 (03/17/2011:25:00) Calcium Lvl [8.5-10.5 mg/dL] 9.9 mg/dL (03/29/2011:45:00) 10.2 mg/dL (03/17/2011 09:25:00) Phosphorus [2.5-4.5 mg/dL] 2.8 mg/dL (03/29/2011:45:00) 3.1 mg/dL (03/17/2011 09:25:00) ALT [0-65 U/L] 59 U/L (03/29/2011:45:00) 58 U/L (03/17/2011:25:00) AST [0-37 U/L] 41 U/L *HI* (03/29/2011:45:00) 35 U/L (03/17/2011:25:00) Alk Phos [39-136 U/L] 84 U/L (03/29/2011:45:00) 74 U/L (03/17/2011:25:00) LDH [98-192 U/L] 213 U/L *HI* (03/29/2011:45:00) 171 U/L (03/17/2011:25:00) Bili Total [0.2-1.3 mg/dL] 0.7 mg/dL (03/29/2011:45:00) 0.5 mg/dL (03/17/2011:25:00) Chol [120-200 mg/dL] 176 mg/dL (03/29/2011:45:00) 172 mg/dL (03/17/2011:25:00) Trig [0-200 mg/dL] 632 mg/dL *HI* (03/29/2011:45:00) 615 mg/dL *HI* (03/17/2011:25:00) Hgb A1C 9.0 % 7 *NA* (03/29/2011:45:00) Cyclosp Tr UT 104.0 ng/mL 8 *NA* (03/29/2011:45:00) 114.0 ng/mL 9 *NA* (03/17/2011 09:25:00) U Creatinine 157.1 mg/dL 10 *NA* (03/29/2011 09:45:00) 182.3 mg/dL 11 *NA* (03/17/2011 09:25:00) U Protein 94.5 mg/dL 12 *NA* (03/29/2011 09:45:00) 99.7 mg/dL 13 *NA* (03/17/2011 09:25:00) U Prot/Creat 0.6 *NA* (03/29/2011 09:45:00) 0.5 *NA* (03/17/2011 09:25:00) 5Interpretive Data: Reference Ranges : 0 - 7 days : 41 - 90 mg/dL7 days - 150 yrs : 70 - 99 mg/dL (fasting), based on the clinical recommendations of the [place] [employer]. 6Interpretive Data: Reference Ranges : 0 - 7 days : 41 - 90 mg/dL7 days - 150 yrs : 70 - 99 mg/dL (fasting), based on the clinical recommendations of the [place] [employer]. 7Interpretive Data: HbA1C% eAG(mg/dL) Interpretation 6.0 126 Very good control 6.5 140 Very good control 7.0 154 Good Control 7.5 169 Good Control 8.0 183 Marginal Control, take action to lower 8.5 197 Marginal Control, take action to lower 9.0 212 Poor Control, take action to lower 9.5 226 Poor Control, take action to lower10.0 240 Poor Control, take action to lower 8Interpretive Data: Kidney Transplantation: Therapeutic ranges for Cyclosporine [...] to dosing.*Methodology and Reference Ranges changed 06/07/04Performed at:[facility] [place] [place] [address], [address] [place] [address] 9Interpretive Data: Kidney Transplantation: Therapeutic ranges for Cyclosporine [...] to dosing.*Methodology and Reference Ranges changed 06/07/04Performed at:[facility] [place] [place] [address], [address] [place], [place] [id number] 10Interpretive Data: No established reference ranges. 11Interpretive Data: No established reference ranges. 12Interpretive Data: No established reference ranges. 13Interpretive Data: No established reference ranges. HEMATOLOGY Most recent to oldest [Reference Range]: 1 2 WBC [3.7-10.4 K/CMM] 8.3 K/CMM (03/29/2011 09:45:00) 7.4 K/CMM (03/17/2011 09:25:00) RBC [4.20-5.40 M/CMM] 3.95 M/CMM *LOW* (03/29/2011 09:45:00) 3.70 M/CMM *LOW* (03/17/2011 09:25:00) Hgb [12.0-16.0 g/dL] 13.1 g/dL (03/29/2011:45:00) 12.4 g/dL (03/17/2011:25:00) Hct [36.0-48.0 %] 37.3 % (03/29/2011:45:00) 35.3 % *LOW* (03/17/2011:25:00) MCV [81.0-99.0 fL] 94.3 fL (03/29/2011:45:00) 95.3 fL (03/17/2011:25:00) MCH [27.0-31.0 pg] 33.0 pg *HI* (03/29/2011:45:00) 33.5 pg *HI* (03/17/2011:25:00) MCHC [32.0-36.0 g/dL] 35.0 g/dL (03/29/2011:45:00) 35.1 g/dL (03/17/2011:25:00) RDW [11.5-14.5 %] 13.3 % (03/29/2011:45:00) 13.6 % (03/17/2011:25:00) Platelet [133-450 K/CMM] 263 K/CMM (03/29/2011:45:00) 234 K/CMM (03/17/2011:25:00) MPV [7.4-10.4 fL] 9.7 fL (03/29/2011:45:00) 9.6 fL (03/17/2011:25:00) Segs [45.0-75.0 %] 62.4 % (03/29/2011:45:00) 60.0 % (03/17/2011:25:00) Lymphocytes [20.0-40.0 %] 27.2 % (03/29/2011:45:00) 28.8 % (03/17/2011:25:00) Monocytes [2.0-12.0 %] 7.8 % (03/29/2011:45:00) 8.6 % (03/17/2011:25:00) Eosinophils [0.0-4.0 %] 2.3 % (03/29/2011 09:45:00) 2.0 % (03/17/2011 09:25:00) Basophils [0.0-1.0 %] 0.3 % (03/29/2011 09:45:00) 0.6 % (03/17/2011 09:25:00) Segs-Bands # [1.5-8.1 K/CMM] 5.2 K/CMM (03/29/2011 09:45:00) 4.4 K/CMM (03/17/2011 09:25:00) Lymphocytes # [1.0-5.5 K/CMM] 2.3 K/CMM (03/29/2011 09:45:00) 2.1 K/CMM (03/17/2011 09:25:00) Monocytes # [0.0-0.8 K/CMM] 0.6 K/CMM (03/29/2011 09:45:00) 0.6 K/CMM (03/17/2011 09:25:00) Eosinophils # [0.0-0.5 K/CMM] 0.2 K/CMM (03/29/2011 09:45:00) 0.1 K/CMM (03/17/2011 09:25:00) Basophils # [0.0-0.2 K/CMM] 0.0 K/CMM (03/29/2011 09:45:00) 0.0 K/CMM (03/17/2011 09:25:00)
--- OUTSIDE RECORDS SUMMARY | 2018-08-04 14:20 | XMS REPORT | CCD ---
Author Author Auto Generated Organization [facility] Address Unknown Phone Unavailable Care Team Providers Care Glazier Structural Glass Name Role Phone Jose Mittal PP ShayaniainBrody PP [phone] Bob Lainez PP [phone] Radha Castle PP Unavailable Jv Lloyd RP Jarret Patel PP Allergies, Adverse Reactions, Alerts Substance Reaction Status NKDA Active Problem List Condition Effective Dates Status Bowel obstruction < 11/20/2009 Resolved Lethargic < 11/20/2009 Resolved Pain Active Sinus bradycardia < 11/20/2009 Resolved Wound care assessment Active Results REFERENCE LAB RESULTS Most recent to oldest [Reference Range]: 1 [facility]isc [facility] See Report 1 (09/27/2011 10:55:00) Test Name MYCOPHENOLIC ACID *Unknown* (09/27/2011 10:55:00) 1Result Comment: Mycophenolic Acid:4.7 H mcg/mL Reference Range (TROUGH):1.0-3.5 mcg/mL MPA Zzcxphcpxwq648.7 H mcg/mL Reference Range (TROUGH):35.0-100.0 URINALYSIS Most recent to oldest [Reference Range]: 1 UA Turbidity [Clear] Clear (09/27/2011 10:55:00) UA Color [Yellow] Yellow *NA* (09/27/2011 10:55:00) UA pH [5.0-8.0] 6.0 (09/27/2011 10:55:00) UA Spec Grav [<=1.030] 1.022 (09/27/2011 10:55:00) UA Glucose [Negative mg/dL] >=1000 mg/dL *ABN* (09/27/2011 10:55:00) UA Blood [Negative] Negative (09/27/2011 10:55:00) UA Ketones [Negative mg/dL] Negative mg/dL *NA* (09/27/2011 10:55:00) UA Protein [Negative mg/dL] 20 mg/dL *ABN* (09/27/2011 10:55:00) UA Urobilinogen [0.1-1.0 mg/dL] <=1.0 mg/dL *NA* (09/27/2011 10:55:00) UA Bili [Negative] Negative *NA* (09/27/2011 10:55:00) UA Leuk Est [Negative] Negative (09/27/2011 10:55:00) UA Nitrite [Negative] Negative (09/27/2011 10:55:00) UA WBC [0-5 /HPF] <1 /HPF (09/27/2011 10:55:00) UA RBC [0-2 /HPF] 1 /HPF (09/27/2011 10:55:00) UA Bacteria [None Seen /HPF] Occasional /HPF *NA* (09/27/2011 10:55:00) UA Sq Epi [Few /LPF] Moderate /LPF *ABN* (09/27/2011 10:55:00) Micro? Performed *NA* (09/27/2011 10:55:00) CHEMISTRY Most recent to oldest [Reference Range]: 1 Sodium Lvl [135-145 mEq/L] 132 mEq/L *LOW* (09/27/2011 10:55:00) Potassium Lvl [3.5-5.1 mEq/L] 4.5 mEq/L (09/27/2011 10:55:00) Chloride Lvl [95-109 mEq/L] 95 mEq/L (09/27/2011 10:55:00) CO2 [24-32 mEq/L] 21 mEq/L *LOW* (09/27/2011 10:55:00) AGAP [10.0-20.0 mEq/L] 20.5 mEq/L *HI* (09/27/2011 10:55:00) Creatinine Lvl [0.5-1.4 mg/dL] 1.2 mg/dL (09/27/2011 10:55:00) eGFR 51 2 *NA* (09/27/2011 10:55:00) BUN [7-22 mg/dL] 23 mg/dL *HI* (09/27/2011 10:55:00) B/C Ratio [6-25] 19 (09/27/2011 10:55:00) Glucose Lvl [70-99 mg/dL] 409 mg/dL 3, 4 *CRIT* (09/27/2011 10:55:00) Uric Acid [2.5-7.0 mg/dL] 4.2 mg/dL (09/27/2011 10:55:00) Total Protein [6.4-8.4 g/dL] 8.4 g/dL (09/27/2011 10:55:00) Albumin Lvl [3.5-5.0 g/dL] 4.3 g/dL (09/27/2011 10:55:00) Globulin [2.0-4.0 g/dL] 4.1 g/dL *HI* (09/27/2011 10:55:00) A/G Ratio [0.7-1.6] 1.0 (09/27/2011 10:55:00) Calcium Lvl [8.5-10.5 mg/dL] 10.6 mg/dL *HI* (09/27/2011 10:55:00) Phosphorus [2.5-4.5 mg/dL] 3.4 mg/dL (09/27/2011 10:55:00) ALT [0-65 unit/L] 52 unit/L (09/27/2011 10:55:00) AST [0-37 unit/L] 25 unit/L (09/27/2011 10:55:00) Alk Phos [39-136 unit/L] 86 unit/L (09/27/2011 10:55:00) LDH [98-192 unit/L] 170 unit/L (09/27/2011 10:55:00) Bili Total [0.2-1.3 mg/dL] 0.6 mg/dL (09/27/2011 10:55:00) Chol [120-200 mg/dL] 195 mg/dL (09/27/2011 10:55:00) Trig [0-200 mg/dL] 972 mg/dL *HI* (09/27/2011 10:55:00) Cyclosp Tr [50.0-350.0 ng/mL] 128.4 ng/mL (09/27/2011 10:55:00) Immune Cell Func 356 5 *NA* (09/27/2011 10:55:00) U Creatinine 93.6 mg/dL 6 *NA* (09/27/2011 10:55:00) U Protein 34.8 mg/dL 7 *NA* (09/27/2011 10:55:00) U Prot/Creat 0.4 *NA* (09/27/2011 10:55:00) 2Result Comment: Expected eGFR for >20 yr. age group: >=60 ml/min/1.73 sq m The eGFR calculation is not valid in or for persons < 18 years of age. From National Kidney Disease Education Program (NKDEP) 3Result Comment: Called to Diya Rodriguez at 09/27/2011 12:42:53 CDT called by dbf read back ok 4Interpretive Data: Adult reference range values reflect the clinical guidelines of the [place] [employer]. 5Result Comment: Reference Range < ur=170 Low immune cell response 226-524 Moderate immune cell response > lo=358 High immune cell response Test Performed at: [facility] [address] [address] JOI NARAYAN M.D. 6Interpretive Data: No established reference ranges. 7Interpretive Data: No established reference ranges. HEMATOLOGY Most recent to oldest [Reference Range]: 1 WBC [3.7-10.4 K/CMM] 8.5 K/CMM (09/27/2011 10:55:00) RBC [4.20-5.40 M/CMM] 4.05 M/CMM *LOW* (09/27/2011 10:55:00) Hgb [12.0-16.0 g/dL] 13.2 g/dL (09/27/2011 10:55:00) Hct [36.0-48.0 %] 38.8 % (09/27/2011 10:55:00) MCV [81.0-99.0 fL] 95.8 fL (09/27/2011 10:55:00) MCH [27.0-31.0 pg] 32.6 pg *HI* (09/27/2011 10:55:00) MCHC [32.0-36.0 g/dL] 34.0 g/dL (09/27/2011 10:55:00) RDW [11.5-14.5 %] 13.3 % (09/27/2011 10:55:00) Platelet [133-450 K/CMM] 284 K/CMM (09/27/2011 10:55:00) MPV [7.4-10.4 fL] 9.6 fL (09/27/2011 10:55:00) Segs [45.0-75.0 %] 66.4 % (09/27/2011 10:55:00) Lymphocytes [20.0-40.0 %] 25.2 % (09/27/2011 10:55:00) Monocytes [2.0-12.0 %] 6.2 % (09/27/2011 10:55:00) Eosinophils [0.0-4.0 %] 1.8 % (09/27/2011 10:55:00) Basophils [0.0-1.0 %] 0.4 % (09/27/2011 10:55:00) Segs-Bands # [1.5-8.1 K/CMM] 5.6 K/CMM (09/27/2011 10:55:00) Lymphocytes # [1.0-5.5 K/CMM] 2.1 K/CMM (09/27/2011 10:55:00) Monocytes # [0.0-0.8 K/CMM] 0.5 K/CMM (09/27/2011 10:55:00) Eosinophils # [0.0-0.5 K/CMM] 0.2 K/CMM (09/27/2011 10:55:00) Basophils # [0.0-0.2 K/CMM] 0.0 K/CMM (09/27/2011 10:55:00) IMMUNOLOGY Most recent to oldest [Reference Range]: 1 EBV PCR Qnt <200 copies/mL 8 *NA* (09/27/2011 10:55:00) Source BLOOD *NA* (09/27/2011 10:55:00) 8Result Comment: REFERENCE RANGE: <200 copies/mL This test was developed and its performance characteristics have been determined by [facility]. It has not been cleared or approved by the U.S. Food and Drug Administration. The FDA has determined that such clearance or approval is not necessary. Performance characteristics refer to the analytical performance of the test. Test Performed at: [facility], [employer]. [address] [place] [address] Tricia Lynn MD Microbiology Reports PROCEDURE:Culture: Urine STATUS: Auth (Verified) BODY SITE: COLLECTED DATE/TIME: 09/27/2011 10:55:00 SOURCE: Urine, Clean Catch FREE TEXT SOURCE: FINAL REPORTS Final Report No Growth PRELIMINARY REPORTS Preliminary Report No Growth; Holding
--- OUTSIDE RECORDS SUMMARY | 2018-08-04 14:20 | XMS REPORT | Summary of Care ---
Author Organization Unknown Address Unknown Phone Unavailable Care Team Providers Care Scientific Research Associate Name Role Phone Jarret Patel PCP Bob Lainez PCP Radha Castle PCP Unavailable Brody Ruggiero PCP Jose Mittal PCP Encounter [facility]) [id number] Date(s): 10/16/13 - 11/14/[address] Discharge Disposition: Home Physician Attending: Jv Lloyd MD Physician_Referring: Jv Lloyd MD Reason for Visit RENAL POST LABS Problem List Condition Effective Dates Status Health Status Informant Bowel < 10 Resolved obstruction(Confirme d) Diabetes mellitus Resolved type 2(Confirmed) Lethargic(Confirmed) < 15/10 Resolved Pain(Confirmed)(Stab Active le) Polycystic kidney Resolved disease(Confirmed) Sinus < 10 Resolved bradycardia(Confirme d) Wound care Active assessment(Confirmed ) Allergies, Adverse Reactions, Alerts Substance Reaction Severity Status NKDA Active Medications No data available for this section Medications Administered During Your Visit No data available for this section Immunizations No data available for this section Social History Social History Type Response Smoking Status Never smoker, Exposure to Tobacco Smoke None, Cigarette Smoking Last 365 Days No, Reg Smoking Cessation Counseling No
--- OUTSIDE RECORDS SUMMARY | 2018-08-04 14:20 | XMS REPORT | Summary of Care ---
Author Organization Unknown Address Unknown Phone Unavailable Care Team Providers Care Hearing Aid Repair Technician Name Role Phone Jarret Patel PCP Bob Lainez PCP Radha Castle PCP Unavailable Brody Ruggiero PCP Jose Mittal PCP Encounter [facility]) [id number] Date(s): 10/02/13 - 10/31/[address] Discharge Disposition: Home Physician Attending: Moses Armenta MD Physician_Referring: Moses Armenta MD Reason for Visit FOLLOW UP Problem List Condition Effective Dates Status Health Status Informant Bowel < 15/10 Resolved obstruction(Confirme d) Diabetes mellitus Resolved type 2(Confirmed) Lethargic(Confirmed) < 10/15/10 Resolved Pain(Confirmed)(Stab Active le) Polycystic kidney Resolved disease(Confirmed) Sinus < 15/10 Resolved bradycardia(Confirme d) Wound care Active assessment(Confirmed [...]
--- OUTSIDE RECORDS SUMMARY | 2018-08-04 14:20 | XMS REPORT | CCD ---
Author Author Auto Generated Organization [facility] Address Unknown Phone Unavailable Care Team Providers Care Hot Roller Name Role Phone Jose Mittal PP Monik Marcusgabrielle PP [phone] Bob Lainez PP [phone] Radha Castle PP Unavailable Jv Lloyd RP Jarret Patel PP Allergies, Adverse Reactions, Alerts Substance Reaction Status NKDA Active Problem List Condition Effective Dates Status Bowel obstruction < 11/20/2009 Resolved Lethargic < 11/20/2009 Resolved Pain Active Sinus bradycardia < 11/20/2009 Resolved Wound care assessment Active Results URINALYSIS Most recent to oldest [Reference Range]: 1 UA Turbidity [Clear] Clear (05/21/2012 10:30:00) UA Color [Yellow] Yellow *NA* (05/21/2012 10:30:00) UA pH [5.0-8.0] 5.5 (05/21/2012 10:30:00) UA Spec Grav [<=1.030] 1.016 (05/21/2012 10:30:00) UA Glucose >=1000mg/dL *NA* (05/21/2012 10:30:00) UA Blood [Negative] Moderate *ABN* (05/21/2012 10:30:00) UA Ketones [Negative mg/dL] Negative mg/dL *NA* (05/21/2012 10:30:00) UA Protein [Negative mg/dL] 30 mg/dL *ABN* (05/21/2012 10:30:00) UA Urobilinogen [0.1-1.0 mg/dL] <=1.0 mg/dL *NA* (05/21/2012 10:30:00) UA Bili [Negative] Negative *NA* (05/21/2012 10:30:00) UA Leuk Est [Negative] Negative (05/21/2012 10:30:00) UA Nitrite [Negative] Negative (05/21/2012:30:00) UA RBC [0-2 /HPF] 71 /HPF *HI* (05/21/2012 10:30:00) UA Sq Epi [Few /LPF] Few /LPF *NA* (05/21/2012:30:00) CHEMISTRY Most recent to oldest [Reference Range]: 1 Sodium Lvl [135-145 mEq/L] 135 mEq/L (05/21/2012 10:30:00) Potassium Lvl [3.5-5.1 mEq/L] 4.8 mEq/L 1 (05/21/2012 10:30:00) Chloride Lvl [95-109 mEq/L] 98 mEq/L (05/21/2012:30:00) CO2 [24-32 mEq/L] 25 mEq/L (05/21/2012:30:00) AGAP [10.0-20.0 mEq/L] 16.8 mEq/L (05/21/2012 10:30:00) Creatinine Lvl [0.5-1.4 mg/dL] 0.9 mg/dL (05/21/2012 10:30:00) eGFR 76 mL/min/1.73m2 2 *NA* (05/21/2012:30:00) BUN [7-22 mg/dL] 22 mg/dL (05/21/2012:30:00) B/C Ratio [6-25] 24 (05/21/2012 10:30:00) Glucose Lvl [70-99 mg/dL] 237 mg/dL 3 *HI* (05/21/2012:30:00) Uric Acid [2.5-7.0 mg/dL] 3.1 mg/dL (05/21/2012 10:30:00) Total Protein [6.4-8.4 g/dL] 7.6 g/dL (05/21/2012 10:30:00) Albumin Lvl [3.5-5.0 g/dL] 4.0 g/dL (05/21/2012 10:30:00) Globulin [2.0-4.0 g/dL] 3.6 g/dL (05/21/2012 10:30:00) A/G Ratio [0.7-1.6] 1.1 (05/21/2012 10:30:00) Calcium Lvl [8.5-10.5 mg/dL] 9.9 mg/dL (05/21/2012 10:30:00) Phosphorus [2.5-4.5 mg/dL] 3.1 mg/dL (05/21/2012 10:30:00) ALT [0-65 unit/L] 36 unit/L (05/21/2012 10:30:00) AST [0-37 unit/L] 21 unit/L (05/21/2012:30:00) Alk Phos [39-136 unit/L] 73 unit/L (05/21/2012 10:30:00) LDH [98-192 unit/L] 175 unit/L (05/21/2012 10:30:00) Bili Total [0.2-1.3 mg/dL] 0.5 mg/dL (05/21/2012 10:30:00) Chol [120-200 mg/dL] 125 mg/dL (05/21/2012 10:30:00) Trig [0-200 mg/dL] 428 mg/dL *HI* (05/21/2012 10:30:00) Cyclosp Tr [50.0-350.0 ng/mL] 102.0 ng/mL (05/21/2012 10:30:00) Immune Cell Func 269.8 4 *NA* (05/21/2012 10:30:00) U Creatinine 114.5 mg/dL 5 *NA* (05/21/2012 10:30:00) U Protein 38.8 mg/dL 6 *NA* (05/21/2012 10:30:00) U Prot/Creat 0.3 *NA* (05/21/2012 10:30:00) 1Result Comment: Specimen Slightly Hemolyzed. 2Result Comment: The eGFR is calculated using the [...] be mul tiplied by the estimated BMI. 3Interpretive Data: Adult reference range values reflect the clinical guidelines of the [place] [employer]. 4Result Comment: Reference Range < rl=210 Low immune cell response 226-524 Moderate immune cell response > vh=360 High immune cell response Test Performed at: [facility] [address] [id number] JOI NARAYAN M.D. 5Interpretive Data: No established reference ranges. 6Interpretive Data: No established reference ranges. HEMATOLOGY Most recent to oldest [Reference Range]: 1 WBC [3.7-10.4 K/CMM] 8.6 K/CMM (05/21/2012 10:30:00) RBC [4.20-5.40 M/CMM] 3.80 M/CMM *LOW* (05/21/2012 10:30:00) Hgb [12.0-16.0 g/dL] 12.1 g/dL (05/21/2012 10:30:00) Hct [36.0-48.0 %] 35.2 % *LOW* (05/21/2012 10:30:00) MCV [81.0-99.0 fL] 92.6 fL (05/21/2012 10:30:00) MCH [27.0-31.0 pg] 31.7 pg *HI* (05/21/2012 10:30:00) MCHC [32.0-36.0 g/dL] 34.2 g/dL (05/21/2012 10:30:00) RDW [11.5-14.5 %] 14.1 % (05/21/2012 10:30:00) Platelet [133-450 K/CMM] 284 K/CMM (05/21/2012 10:30:00) MPV [7.4-10.4 fL] 9.0 fL (05/21/2012 10:30:00) Segs [45.0-75.0 %] 57.3 % (05/21/2012 10:30:00) Lymphocytes [20.0-40.0 %] 31.5 % (05/21/2012 10:30:00) Monocytes [2.0-12.0 %] 8.0 % (05/21/2012 10:30:00) Eosinophils [0.0-4.0 %] 2.6 % (05/21/2012 10:30:00) Basophils [0.0-1.0 %] 0.6 % (05/21/2012 10:30:00) Segs-Bands # [1.5-8.1 K/CMM] 4.9 K/CMM (05/21/2012 10:30:00) Lymphocytes # [1.0-5.5 K/CMM] 2.7 K/CMM (05/21/2012 10:30:00) Monocytes # [0.0-0.8 K/CMM] 0.7 K/CMM (05/21/2012 10:30:00) Eosinophils # [0.0-0.5 K/CMM] 0.2 K/CMM (05/21/2012 10:30:00) Basophils # [0.0-0.2 K/CMM] 0.1 K/CMM (05/21/2012 10:30:00) Microbiology Reports PROCEDURE:Culture: Urine STATUS: Auth (Verified) BODY SITE: COLLECTED DATE/TIME: 05/21/2012 17:53:00 SOURCE: Urine, Clean Catch FREE TEXT SOURCE: FINAL REPORTS Final Report No Growth PRELIMINARY REPORTS Preliminary Report No Growth; Holding
--- OUTSIDE RECORDS SUMMARY | 2018-08-04 14:20 | XMS REPORT | Summary of Care ---
Author Organization Unknown Address Unknown Phone Unavailable Care Team Providers Care Hoist Operator Name Role Phone Jarret Ptael PCP Bob Lainez PCP Radha Castle PCP Unavailable Brody Ruggiero PCP Jose Mittal PCP Encounter [facility]) [phone] Date(s): 12/25/13 - 01/23/[address] Discharge Disposition: Home Physician Attending: Moses Armenta MD Physician_Referring: Moses Armenta MD Reason for Visit FOLLOW ON WOUND Vital Signs Most recent to 1 oldest [Reference Range]: Height 167.64 cm (12/25/13 2:34 PM) Weight 77.273 kg (12/25/13 2:34 PM) Body Mass Index 27.5 m2 (12/25/13 2:34 PM) Problem List Condition Effective Dates Status Health Status Informant Bowel < 11/20/09 Resolved obstruction(Confirme d) Diabetes mellitus Resolved type 2(Confirmed) Lethargic(Confirmed) < 11/20/09 Resolved MRSA(Confirmed)1 Active Pain(Confirmed)(Stab Active le) Polycystic kidney Resolved disease(Confirmed) Sinus < 11/20/09 Resolved bradycardia(Confirme d) Wound care Active assessment(Confirmed ) 1Problem added by Discern Expert. Allergies, Adverse Reactions, Alerts Substance Reaction Severity [...]
--- OUTSIDE RECORDS SUMMARY | 2018-08-04 14:20 | XMS REPORT | Summary of Care ---
Author Organization Unknown Address Unknown Phone Unavailable Care Team Providers Care Short Haul Driver Name Role Phone Jarret Patel PCP Bob Lainez PCP Radha Castle PCP Unavailable Brody Ruggiero PCP Jose Mittal PCP Encounter Dates Location Diagnoses Discharge Providers Disposition 04/01/2013 [facility] [address] [place], [place] [address] 04/30/[address] Reason for Visit LAREGE ABDOMINAL WOUND Problem List Condition Effective Dates Status Health Status Informant Bowel < 11/20/2009 Resolved obstruction(Confirme d) Lethargic(Confirmed) < 11/20/2009 Resolved Pain(Confirmed/Stabl Active e) Sinus < 11/20/2009 Resolved bradycardia(Confirme d) Wound care Active assessment(Confirmed ) Allergies, Adverse Reactions, Alerts Status Substance Reaction Severity Active NKDA Medications No data available for this section Medications Administered During Your Visit No data available for this section Immunizations No data available for this section
--- OUTSIDE RECORDS SUMMARY | 2018-08-04 14:20 | XMS REPORT | Summary of Care ---
Author Organization Unknown Address Unknown Phone Unavailable Care Team Providers Care Rail Signal Worker Name Role Phone Jarret Patel PCP Bob Lainez PCP Radha Castle PCP Unavailable Brody Ruggiero PCP Jose Mittal PCP Encounter [facility]) [phone] Date(s): 02/19/14 - 03/20/[address] Discharge Disposition: Home Physician Attending: Moses Armenta MD Physician_Referring: Moses Armenta MD Reason for Visit FOLLOW ON WOUND Problem List Condition Effective Dates Status Health Status Informant Bowel < 11/20/09 Resolved obstruction(Confirme d) Diabetes mellitus Resolved type 2(Confirmed) Lethargic(Confirmed) < 10 Resolved MRSA(Confirmed)1 Active Pain(Confirmed)(Stab Active le) Polycystic [...]
--- OUTSIDE RECORDS SUMMARY | 2018-08-04 14:20 | XMS REPORT | Summary of Care ---
Author Organization Unknown Address Unknown Phone Unavailable Care Team Providers Care Director Of Distance Learning Name Role Phone Jarret Patel PCP Bob Lainez PCP Radha Castle PCP Unavailable Brody Ruggiero PCP Jose Mittal PCP Encounter [facility]) [phone] Date(s): 05/13/13 - 06/11/[address] Discharge Disposition: Home Physician Attending: Moses Armenta Physician_Referring: Veronica Giron MD Reason for Visit LAREGE ABDOMINAL WOUND Problem List Condition Effective Dates Status Health Status Informant Bowel < 15/10 Resolved obstruction(Confirme d) Lethargic(Confirmed) < 1015/10 Resolved Pain(Confirmed)(Stab Active le) Sinus < /15/10 Resolved bradycardia(Confirme d) Wound care Active assessment(Confirmed ) Allergies, Adverse Reactions, Alerts Substance Reaction Severity Status NKDA Active Medications No data available for this section Medications Administered During Your Visit No data available for this section Immunizations No data available for this section
--- OUTSIDE RECORDS SUMMARY | 2018-08-04 14:20 | XMS REPORT | Summary of Care ---
Author Organization Unknown Address Unknown Phone Unavailable Care Team Providers Care Valve Repairer Reclamation Name Role Phone Jarret Patel PCP Bob Lainez PCP Radha Castle PCP Unavailable Brody Ruggiero PCP Jose Mittal PCP Encounter [email or web address]) [id number] Date(s): 11/13/13 - 12/12/[address] Discharge Disposition: Home Physician Attending: Moses Armenta MD Physician_Referring: Moses Armenta MD Reason for Visit FOLLOW ON WOUND Problem List Condition Effective Dates Status Health Status Informant Bowel < 15/10 Resolved obstruction(Confirme d) Diabetes mellitus Resolved type 2(Confirmed) Lethargic(Confirmed) < 1015/10 Resolved Pain(Confirmed)(Stab Active le) Polycystic kidney Resolved [...]
--- OUTSIDE RECORDS SUMMARY | 2018-08-04 14:20 | XMS REPORT | Summary of Care ---
Author Organization Unknown Address Unknown Phone Unavailable Care Team Providers Care Technical Support Assistant Name Role Phone Jarret Patel PCP Bob Lainez PCP Radha Castle PCP Unavailable Brody Ruggiero PCP Jose Mittal PCP Encounter [facility]) [phone] Date(s): 07/08/13 - 08/06/[address] Discharge Disposition: Home Physician Attending: Jv Lloyd MD Physician_Referring: Jv Lloyd MD Reason for Visit POST CLINIC Vital Signs Most recent to 1 oldest [Reference Range]: Height 170 cm (07/08/13 1:09 PM) Systolic Blood 137 mmHg Pressure [90-140 (07/08/13 1:09 PM) mmHg] Diastolic Blood 76 mmHg Pressure [60-90 (07/08/13 1:09 PM) mmHg] Respiratory Rate 16 BRMIN [14-20 BRMIN] (07/08/13 1:09 PM) Peripheral Pulse 75 bpm Rate [60-100 bpm] (07/08/13 1:09 PM) Weight 97.3 kg (07/08/13 1:09 PM) Body Mass Index 33.67 m2 (07/08/13 1:09 PM) Problem List Condition Effective Dates Status [...] Body Site Date of Procedure Related Diagnosis Craniotomy Hernia repair Social History Social History Type Response Smoking Status Never smoker, Exposure to Tobacco Smoke None, Cigarette Smoking Last 365 Days No, Reg Smoking Cessation Counseling No
[2018-08-04] MEDS ORDERED: HYDROCODONE/APAP 10MG-325MG TAB PO ONE (14:30)
--- NOTE | 2018-08-04 15:40 | Diagnostic Imaging Report ---
Exam: Left hand radiographs-3 views History: Status post fall. Comparison: None. Findings: No evidence of acute fracture, malalignment, or soft tissue abnormality. Diffuse mild osteopenia. Mild degenerative changes at the first carpometacarpal joint. Impression: No acute radiographic abnormality. Signed by: Dr. Paty Ruiz MD on 08/04/2018 3:36 PM
--- NOTE | 2018-08-04 15:41 | Diagnostic Imaging Report ---
Exam: Left leg radiographs-2 views History: Status post fall. Comparison: None. Findings: No evidence of acute fracture, malalignment, or soft tissue abnormality. Impression: No acute radiographic abnormality. Signed by: Dr. Paty Ruiz MD on 08/04/2018 3:38 PM
== END 2018-08-04 16:25 | disposition home or self-care (01) ==
LOC: ER 14:15
DX: S60.222A Contusion of left hand, initial encounter (principal); S80.12XA Contusion of left lower leg, initial encounter; W01.0XXA Fall on same level from slipping, tripping and stumbling without subsequent striking against object, initial encounter; Y92.008 Other place in unspecified non-institutional (private) residence as the place of occurrence of the external cause; I10 Essential (primary) hypertension; E11.9 Type 2 diabetes mellitus without complications; N28.9 Disorder of kidney and ureter, unspecified
CPT/HCPCS: 99284

== ENCOUNTER → 2018-08-27 | Outpatient (CLI) | payer MEDICARE ==
--- NOTE | 2018-09-11 16:12 | Diagnostic Imaging Report ---
#[id number] - MGSCRBIL #BILATERAL DIGITAL SCREENING MAMMOGRAM WITH CAD: 08/27/2018 CLINICAL: Routine screening. No prior exams were available for comparison. There are scattered fibroglandular elements in both breasts. Current study was also evaluated with a Computer Aided Detection (CAD) system. There are multiple lobulated nodules with a circumscribed margin throughout the left breast. No other significant masses, calcifications, or other findings are seen in either breast. IMPRESSION: INCOMPLETE: NEEDS ADDITIONAL IMAGING EVALUATION The multiple lobulated nodules in the left breast most likely represent multiple intramammary lymph nodes. However, an ultrasound is recommended as there are no previous studies available for comparison. The patient will be contacted by the Mammography Department to schedule this appointment. Reji Tam M.D. km/:09/11/2018 09:24:32 Netsuite Developer: Jania TURNER)(Jamin), [facility] letter sent: Additional Imaging Needed Mammogram BI-RADS: 0 Indeterminate
== END ==
LOC: MAMMO 14:01
PROVIDERS: ATTEND Internal Medicine
DX: Z12.31 Encounter for screening mammogram for malignant neoplasm of breast (principal)
CPT/HCPCS: 77067

== ENCOUNTER → 2018-10-05 | Outpatient (CLI) | payer MEDICARE ==
--- NOTE | 2018-10-09 09:29 | Diagnostic Imaging Report ---
#[id number] - USBRECOMLT ULTRASOUND OF THE LEFT BREAST : 10/05/2018 Comparison is made to exam dated: 08/27/2018 mammogram - [facility]. Real-time ultrasound was performed on the left breast. Several intramammary lymph nodes are present at 2-3:00 which correspond to the mammographic findings. There are no suspicious solid or cystic masses identified. IMPRESSION: BENIGN There is no sonographic evidence of malignancy. A 1 year screening mammogram is recommended. LAURA TEJEDA M.D. ct/:10/05/2018 15:45:32 Vulnerability Assessment Analyst: BRITTA OLMEDO RDAZ, [facility] letter sent: Normal Exam Ultrasound BI-RADS: 2 Benign
== END ==
LOC: US 14:39
PROVIDERS: ATTEND Internal Medicine
DX: N63.20 Unspecified lump in the left breast, unspecified quadrant (principal)

== ENCOUNTER → 2020-02-25 | Outpatient (CLI) | payer MEDICARE | LOC: MAMMO 13:28 | PROVIDERS: ATTEND Internal Medicine | DX: Z12.31 Encounter for screening mammogram for malignant neoplasm of breast (principal) | CPT/HCPCS: 77067 ==

== ENCOUNTER 2021-03-08 23:33 | Emergency (ER) | payer MEDICARE ==
[~2021-03-08] VITALS: Ht 170.2 cm; Wt 98.4 kg
[2021-03-08] MEDS ORDERED: DEXAMETHASONE SOD PHOS 10 MG/1 ML VIAL ONE (23:58)
[2021-03-09] MEDS ORDERED: DEXAMETHASONE SOD PHOS 10 MG/1 ML VIAL IM ONE
== END 2021-03-09 00:25 | disposition home or self-care (01) ==
LOC: ER 23:40
DX: S39.012A Strain of muscle, fascia and tendon of lower back, initial encounter (principal); X50.0XXA Overexertion from strenuous movement or load, initial encounter; Y92.098 Other place in other non-institutional residence as the place of occurrence of the external cause; E78.5 Hyperlipidemia, unspecified; Z94.0 Kidney transplant status
CPT/HCPCS: 99282; J1100